=== PATIENT | female | born 1980 | race Hispanic/Latino ===

== ENCOUNTER 2017-07-15 16:54 | Inpatient (IN) | payer BC ==
[2017-07-15 17:37] LABS: BASO % 0.4 % (0.0-2.0); EOS # 0.1 K/uL (0.0-0.7); EOS % 1.2 % (0.0-4.0); HEMATOCRIT 40.3 % (34.0-47.0); LYMPH # 2.1 K/uL (1.0-4.3); LYMPH % 30.1 % (20.0-40.0); MEAN CELL VOLUME 90.1 fl (81.0-99.0); MEAN CORPUSCULAR HEMOGLOBIN 30.6 pg (27.0-31.0); MEAN CORPUSCULAR HGB CONC 33.9 g/dL (33.0-37.0); MEAN PLATELET VOLUME 10.4 fl (7.2-11.7); MONO # 0.4 K/uL (0.0-0.8); MONO % 5.9 % (0.0-10.0); NEUT # 4.4 K/uL (1.8-7.0); NEUT % 62.4 % (50.0-75.0); NRBC % 0.1 % (0.0-0.0); RED CELL DISTRIBUTION WIDTH 12.7 % (11.5-14.5); WHITE BLOOD COUNT 7.1 K/uL (4.8-10.8)
[2017-07-15 17:55] LABS: ALB/GLOB RATIO 1.6 (1.0-2.1); ALKALINE PHOSPHATASE 61 U/L (38-126); ALT/SGPT 30 U/L (9-52); AST/SGOT 24 U/L (14-36); BILIRUBIN,TOTAL 1.5 mg/dl (0.2-1.3); BLOOD UREA NITROGEN 14 mg/dl (7-17); CALCIUM 9.4 mg/dL (8.4-10.2); CARBON DIOXIDE 26 mmol/L (22-30); CHLORIDE 104 mmol/L (98-107); CHOLESTEROL 151 mg/dL (0-199); GFR AFRICAN-AMERICAN > 60; GLUCOSE,RANDOM 105 mg/dL (65-105); POTASSIUM 3.8 MMOL/L (3.6-5.0); SODIUM 141 mmol/l (132-148); TOTAL PROTEIN 7.8 G/DL (6.3-8.2)
--- NOTE | 2017-07-15 17:58 | CT ---
PROCEDURE: CT HEAD WITHOUT CONTRAST. HISTORY: dysarthria since last night, hx migraines COMPARISON: None available. TECHNIQUE: Axial computed tomography images were obtained through the head/brain without intravenous contrast. Radiation dose: Total exam DLP = 748.19 mGy-cm. This CT exam was performed using one or more of the following dose reduction techniques: Automated exposure control, adjustment of the mA and/or kV according to patient size, and/or use of iterative reconstruction technique. FINDINGS: HEMORRHAGE: No intracranial hemorrhage. BRAIN: No mass effect or edema. No atrophy or chronic microvascular ischemic changes.Please note that MRI with diffusion imaging is more sensitive in the detection of acute ischemic event. VENTRICLES: Unremarkable. No hydrocephalus. CALVARIUM: Unremarkable. PARANASAL SINUSES: Unremarkable as visualized. No significant inflammatory changes. MASTOID AIR CELLS: Under aerated and sclerotic left mastoid air cells which contain fluid. The right mastoid air cells appear clear. OTHER FINDINGS: None. IMPRESSION: No acute intracranial pathology identified. Under aerated and sclerotic left mastoid air cells which contain fluid. Correlate clinically for history of mastoiditis.
--- NOTE | 2017-07-15 18:18 | RAD ---
HISTORY: dysarthria COMPARISON: Chest x-ray performed 04/03/16 TECHNIQUE: Chest, one view. FINDINGS: LUNGS: No focal consolidation. Please note that chest x-ray has limited sensitivity for the detection of pulmonary masses. PLEURA: No significant pleural effusion identified. No definite pneumothorax . CARDIOVASCULAR: The cardiomediastinal silhouette appears within normal limits of size. OSSEOUS STRUCTURES: No acute osseous abnormality identified. VISUALIZED UPPER ABDOMEN: Unremarkable. OTHER FINDINGS: None. IMPRESSION: No focal consolidation, significant pleural effusion, or definite pneumothorax identified.
--- NOTE | 2017-07-15 19:19 | ED PDOC ---
HPI:STROKE - Time Time: 17:01 - Historian Historian: Patient, Family - Chief Complaint Chief Complaint: other (difficulty speaking) - Onset Date: 07/14/17 Onset: Hours (>24hrs ago) - Timing Timing: Currently Symptomatic, Intermittent - Location Location: Speech - Severity of pain Maximum severity:: Mild Severity Current: Mild - Quality of Pain Quality of Pain:: Pressure - Associated Symptoms Associated symptoms:: Headache - Exacerbated by Exacerbated by:: Nothing - Relieved by Relieved by:: Nothing - TPA Positive for Contraindication: Yes Reason tPA is not being Administered: NIHSS <4 and symptoms ongoing >24 hrs - Notes: Notes:: 36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 States has no word finding difficulties, rather feels as "tongue is heavy". Awoke this morning, took a benadryl thinking it would help, which she believes it did as symptoms improved briefly, then returned. She went to PMD Dr Conn who recommended she come to ED. In ED c/o only the speech difficulty and mild headache which is different than normal migrane pattern. Denies weakness, numbness, change in vision or coordination. Does not take ASA daily. <Donavon Howard III - Last Filed: 07/16/17 10:00> NIHSS Stroke Scale - Date/Time Evaluation Performed Date Performed: 07/15/17 Time Performed: 17:05 When Was NIHSS Performed: Baseline - How Severe is the Stroke Level of Consciousness: 0=Alert LOC to Questions: 0=Both comments correct LOC to commands: 0=Obeys both correctly Best Gaze: 0=Normal Visual: 0=No visual loss Facial: 0=Normal Motor Arm - Left: 0=No drift Motor Arm - Right: 0=No drift Motor Leg - Left: 0=No drift Motor Leg - Right: 0=No drift Limb Ataxia: 0=Absent Sensory: 0=Normal Best Language: 0=No aphasia Dysarthia: 1=Mild to moderate slurring Extinction & Inattention (Neglect): 0=Normal, no object Score: 1 <Donavon Howard III - Last Filed: 07/16/17 10:00> rTPA Inclusion/Exclusion - Refusal of Treatment Patient Refused Treatment: No - Inclusion Criteria for Altepase Patient is 18 years or Older: Yes The Clinical Diagnosis of Ischemic Stroke That is Causing a Potentially Disabling Neurological Deficit: Yes Time of Onset is Well Established to be Less Than 270 Minute Before Treatment Would Begin: No Risk/Benefit Discussed With Patient/Family Member Present: Yes - Exclusion Criteria for Altepase Uncontrolled Hypertension at Time of Treatment (Systolic BP above 185 or Diastolic BP above 110 mmHg): No - Warning to TPA With Conditions Following Conditions Weighed Against Anticipated Benefit: Yes Condition: Stroke Serevity Too Mild <Donavon Howard III - Last Filed: 07/16/17 10:00> Past Medical History Vital Signs: Last Vital Signs Temp 98.6 F 07/15/17 21:45 Pulse 70 07/15/17 22:16 Resp 20 07/15/17 22:16 BP 105/68 07/15/17 21:45 Pulse Ox 98 07/15/17 21:45 <Serg Mckeon - Last Filed: 07/16/17 00:10> Reviewed: Historical Data, Nursing Documentation, Vital Signs Vital Signs: Last Vital Signs Temp 98.0 F 07/15/17 17:00 Pulse 75 07/15/17 17:00 Resp 10 L 07/15/17 17:00 BP 113/76 07/15/17 17:00 Pulse Ox 100 07/15/17 17:00 - Medical History PMH: Migraine (on daily propranolol for prophylaxis) Other PMH: darien danlos; ?macroglobbulin deficiency, prior rheum and alleric workup; - Family History Family History: States: Unknown Family Hx - Living Arrangements Living Arrangements: With Family - Social History Current smoker - smoking cessation education provided: No <Donavon Howard III - Last Filed: 07/16/17 10:00> - Home Medications Home Medications: Ambulatory Orders Medication Instructions Recorded Albuterol HFA [Ventolin HFA 90 2 puff IH Q4H PRN 07/15/17 mcg/actuation (8 g)] Propranolol [Inderal] 10 mg PO HS 07/15/17 - Allergies Allergies/Adverse Reactions: Allergies Allergy/AdvReac Type Severity Reaction Status Date / Time azithromycin [From Zithromax] Allergy ANAPHYLAXIS Verified 04/03/16 03:16 codeine AdvReac RASH Verified 04/03/16 03:16 diazepam [From Valium] AdvReac RASH Verified 07/15/17 16:56 Review of Systems ROS Statement: Except As Marked, All Systems Reviewed And Found Negative ENT: Negative for: Ear Pain, Nose Pain, Throat Pain Cardiovascular: Negative for: Palpitations, Orthopnea Respiratory: Negative for: Cough, Shortness of Breath Gastrointestinal: Negative for: Nausea, Abdominal Pain Genitourinary Female: Negative for: Dysuria, Frequency Musculoskeletal: Negative for: Neck Pain, Arm Pain, Back Pain, Leg Pain Skin: Negative for: Rash, Lesions, Jaundice Neurological: Positive for: Headache, Other (speech changes). Negative for: Weakness, Numbness, Dizziness Psych: Negative for: Anxiety <Donavon Howard III - Last Filed: 07/16/17 10:00> Physical Exam - Reviewed Nursing Documentation Reviewed: Yes Vital Signs Reviewed: Yes - Physical Exam Appears: Positive for: Non-toxic (speech +dysarthria but language intact), No Acute Distress Head Exam: Positive for: ATRAUMATIC, NORMAL INSPECTION, NORMOCEPHALIC Skin: Positive for: Normal Color, Warm, DRY Eye Exam: Positive for: EOMI, Normal appearance, PERRL ENT: Positive for: Normal ENT Inspection, TM Is/Are (no erythema b/'), Other ( no mastoid tenderness or erythema). Negative for: Pharyngeal Erythema Neck: Positive for: Normal, Painless ROM Cardiovascular/Chest: Positive for: Regular Rate, Rhythm Respiratory: Positive for: CNT, Normal Breath Sounds Gastrointestinal/Abdominal: Positive for: Bowel Sounds, Soft. Negative for: Tenderness Back: Positive for: Normal Inspection Extremity: Positive for: Normal ROM Neurologic/Psych: Positive for: Alert, Oriented, Other (+dysarthria). Negative for: Aphasia, Facial Droop <Donavon Howard III - Last Filed: 07/16/17 10:00> - Laboratory Results Result Diagrams: 07/15/17 17:21 07/15/17 17:21 <Serg Mckeon - Last Filed: 07/16/17 00:10> - Laboratory Results Result Diagrams: 07/15/17 17:21 07/15/17 17:21 - ECG O2 Sat by Pulse Oximetry: 100 <Donavon Howard III - Last Filed: 07/16/17 10:00> Medical Decision Making Medical Decision Making: symptoms ongoing >24 hrs, not candidate for code stroke protocol. CT brain, labs, EKG ordered CT brain reviewed, ?fluid in mastoid- pt states thats been present on MRI in past and denies current pain in area. labs unremarkable ASA ordered. D/w PMD Dr Conn, requests admission to service and service neurology D/w Dr Mckeon neurology. Not candidate for TPA. May be vasculitis given hx darien danlos? D/w Dr Shultz for hospital admission (hospitalist electronic transaction implementer but unavailable for admission) On re-eval speech somewhat improved, mild headache remains. Patient and family member updated on findings. Told to alert RN immediately if symptoms return or worsen, or new symptoms develop. <Donavon Howard III - Last Filed: 07/16/17 10:00> Disposition <Serg Mckeon - Last Filed: 07/16/17 00:10> - Patient ED Disposition Is Patient to be Admitted: Yes Counseled Patient/Family Regarding: Studies Performed, Diagnosis, Need For Followup - Disposition Disposition: Routine/Home Disposition Time: 19:01 - Pt Status Changed To: Hospital Disposition Of: Observation - POA Present On Arrival: None <Donavon Howard III - Last Filed: 07/16/17 10:00> - Clinical Impression Clinical Impression: Dysarthria - Disposition Condition: STABLE
[2017-07-15] MEDS ORDERED: Albuterol HFA 90 mcg/actuation (8 g) IH PRN (22:38)
--- NOTE | 2017-07-15 23:22 | CP.PCM.CON ---
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 She had a migraine exacerbation in her bi frontal area. She has a history of migraine since many years and a history of Anxiety Depression, for which she was seen by a psychiatrist long time ago. No H/o Head trauma, no h/o seizures, no family history of seizures, she has a h/o Ehler Danlos Syndrome and was seen by a chucking machine set up operator who performed on her an ECHO, and is followed by her Press Operator Assistant. She has periodic and annual check ups. No H/O HTN or high Cholesterol She is not receiving Hormonal control but is not observing migraine Headache Precautions. She is always hydrated and drinking water and fluids. - Timing Timing: Currently Symptomatic, Intermittent - Location Location: Speech - Severity of pain Maximum severity:: Mild Severity Current: Mild - Quality of Pain Quality of Pain:: Pressure - Associated Symptoms Associated symptoms:: Headache - Exacerbated by Exacerbated by:: Nothing - Relieved by Relieved by:: Nothing - TPA Positive for Contraindication: Yes Reason tPA is not being Administered: NIHSS <4 and symptoms ongoing >24 hrs Past Medical History Vital Signs: Last Vital Signs Temp 98.0 F 07/15/17 17:00 Pulse 75 07/15/17 17:00 Resp 10 L 07/15/17 17:00 BP 113/76 07/15/17 17:00 Pulse Ox 100 07/15/17 17:00 - Family History Family History: States: Unknown Family Hx No Seizures, no Rheumatological diseases. CT Brain without contrast: No acute intracranial pathology identified. Under aerated and sclerotic left mastoid air cells which contain fluid. Correlate clinically for history of mastoiditis. Past Patient History - Past Medical History & Family History Past Medical History?: Yes - Past Social History Smoking Status: Never Smoked - CARDIAC Hx Cardiac Disorders: No - PULMONARY Hx Respiratory Disorders: No - NEUROLOGICAL Hx Neurological Disorder: Yes Hx Migraine: Yes - HEENT Hx HEENT Problems: No - RENAL Hx Chronic Kidney Disease: No - ENDOCRINE/METABOLIC Hx Endocrine Disorders: No - HEMATOLOGICAL/ONCOLOGICAL Hx Blood Disorders: No Hx AIDS: No Hx Human Immunodeficiency Virus (HIV): No - INTEGUMENTARY Hx Dermatological Problems: No - MUSCULOSKELETAL/RHEUMATOLOGICAL Hx Musculoskeletal Disorders: No Hx Falls: No - GASTROINTESTINAL Hx Gastrointestinal Disorders: No - GENITOURINARY/GYNECOLOGICAL Hx Genitourinary Disorders: No - PSYCHIATRIC Hx Psychophysiologic Disorder: No Hx Substance Use: No - SURGICAL HISTORY Hx Surgeries: No - ANESTHESIA Hx Anesthesia: No Hx Anesthesia Reactions: No Meds Allergies/Adverse Reactions: Allergies Allergy/AdvReac Type Severity Reaction Status Date / Time azithromycin [From Zithromax] Allergy ANAPHYLAXIS Verified 04/03/16 03:16 codeine AdvReac RASH Verified 04/03/16 03:16 diazepam [From Valium] AdvReac RASH Verified 07/15/17 16:56 Physical Exam - Neurological Exam Additional comments: Slim and Petite Mental status: Awake, Alert, Oriented, mildly dysarthric speech, able to maintain a conversation in full. Normal memory Cranial Nerves II to XII: No Deficits Motor: Normal tone, Power, muscle bulk DTR 1 to 2 /4 Plantar stimulation is causing down going toes. Sensory: no deficits Cerebellar: Normal Exam Results - Vital Signs Recent Vital Signs: Last Vital Signs Temp 98.0 F 07/15/17 20:38 Pulse 70 07/15/17 22:16 Resp 20 07/15/17 22:16 BP 149/79 07/15/17 20:38 Pulse Ox 100 07/15/17 20:38 - Labs Result Diagrams: 07/15/17 17:21 07/15/17 17:21 Labs: Laboratory Results - last 24 hr 07/15/17 07/15/17 07/15/17 17:21 17:21 17:21 WBC 7.1 RBC 4.47 Hgb 13.7 Hct 40.3 MCV 90.1 MCH 30.6 MCHC 33.9 RDW 12.7 Plt Count 185 MPV 10.4 Neut % (Auto) 62.4 Lymph % (Auto) 30.1 [place] % (Auto) 5.9 Eos % (Auto) 1.2 Baso % (Auto) 0.4 Neut # 4.4 Lymph # 2.1 [place] # 0.4 Eos # 0.1 Baso # 0.0 ESR PT 11.2 INR 1.0 APTT 33.0 Sodium 141 Potassium 3.8 Chloride 104 Carbon Dioxide 26 Anion Gap 15 BUN 14 Creatinine 0.7 Est GFR ( Amer) > 60 Est GFR (Non-Af Amer) > 60 Random Glucose 105 Calcium 9.4 Total Bilirubin 1.5 H AST 24 ALT 30 Alkaline Phosphatase 61 Troponin I < 0.0120 Total Protein 7.8 Albumin 4.8 Globulin 2.9 Albumin/Globulin Ratio 1.6 Triglycerides 71 Cholesterol 151 LDL Cholesterol Direct 49 HDL Cholesterol 72 H Blood Type Antibody Screen BBK History Checked 07/15/17 07/15/17 17:21 19:55 WBC RBC Hgb Hct MCV MCH MCHC RDW Plt Count MPV Neut % (Auto) Lymph % (Auto) [place] % (Auto) Eos % (Auto) Baso % (Auto) Neut # Lymph # [place] # Eos # Baso # ESR 10 PT INR APTT Sodium Potassium Chloride Carbon Dioxide Anion Gap BUN Creatinine Est GFR ( Amer) Est GFR (Non-Af Amer) Random Glucose Calcium Total Bilirubin AST ALT Alkaline Phosphatase Troponin I Total Protein Albumin Globulin Albumin/Globulin Ratio Triglycerides Cholesterol LDL Cholesterol Direct HDL Cholesterol Blood Type O POSITIVE Antibody Screen Negative BBK History Checked No verified bt Assessment & Plan (1) Que-Danlos disease Assessment and Plan: Needs to stay hydrated and avoid violent movement Get Cardiology Consult Status: Acute (2) Dizziness Assessment and Plan: It might be due to migraine, R/O Seizures Status: Acute (3) Epistaxis Status: Acute (4) Migraine headache Assessment and Plan: Headache precautions were explained to her Status: Acute (5) Mastoiditis Assessment and Plan: On the left side. Needs to be treated with Antibiotics as it might be a factor in her headache. Status: Acute
[2017-07-16 07:11] LABS: THYROID STIMULATING HORMONE 2.96 mIU/ML (0.46-4.68)
--- NOTE | 2017-07-16 07:57 | CP.PCM.HP ---
<Carlos De León - Last Filed: 07/16/17 17:32> History of Present Illness - History of Present Illness History of Present Illness: Patient seen and examined with attending. 36 y/o female with hx of migraine headaches, que shana (dx by her border machine operator), presented to ED c/o of speech difficulty with speech, felt like she was slurring her words. She states she was at work when it started. She went to PMD and subsequently sent to ED. Patient denied headache. No weakness, numbness, tingling of extremities. No history of similar episode. Diagnosis of fred saldana made clinically, has not had genetic testing yet. Medications reviewed. Allergies reviewed. Present on Admission - Present on Admission Any Indicators Present on Admission: No Review of Systems - Constitutional Constitutional: absent: Fatigue, Fever - EENT Eyes: absent: Blurred Vision, Change in Vision, Loss of Peripheral Vision Nose/Mouth/Throat: absent: Nasal Congestion, Nasal Discharge - Cardiovascular Cardiovascular: absent: Chest Pain, Palpitations - Respiratory Respiratory: absent: Cough, Dyspnea - Gastrointestinal Gastrointestinal: absent: Abdominal Pain, Nausea - Musculoskeletal Musculoskeletal: absent: Arthralgias - Neurological Neurological: Headaches. absent: Abnormal Hearing, Disequilibrium, Numbness, Memory Loss, Tingling Past Patient History - Infectious Disease Hx of Infectious Diseases: None - Past Medical History & Family History Past Medical History?: Yes - Past Social History Smoking Status: Never Smoked - CARDIAC Hx Cardiac Disorders: No - PULMONARY Hx Respiratory Disorders: No - NEUROLOGICAL Hx Neurological Disorder: Yes Hx Migraine: Yes - HEENT Hx HEENT Problems: No - RENAL Hx Chronic Kidney Disease: No - ENDOCRINE/METABOLIC Hx Endocrine Disorders: No - HEMATOLOGICAL/ONCOLOGICAL Hx Blood Disorders: No Hx AIDS: No Hx Human Immunodeficiency Virus (HIV): No - INTEGUMENTARY Hx Dermatological Problems: No - MUSCULOSKELETAL/RHEUMATOLOGICAL Hx Musculoskeletal Disorders: No Hx Falls: No - GASTROINTESTINAL Hx Gastrointestinal Disorders: No - GENITOURINARY/GYNECOLOGICAL Hx Genitourinary Disorders: No - PSYCHIATRIC Hx Psychophysiologic Disorder: No Hx Substance Use: No - SURGICAL HISTORY Hx Surgeries: No - ANESTHESIA Hx Anesthesia: No Hx Anesthesia Reactions: No Meds Allergies/Adverse Reactions: Allergies Allergy/AdvReac Type Severity Reaction Status Date / Time azithromycin [From Zithromax] Allergy ANAPHYLAXIS Verified 04/03/16 03:16 codeine AdvReac RASH Verified 04/03/16 03:16 diazepam [From Valium] AdvReac RASH Verified 07/15/17 16:56 Physical Exam - Constitutional Appears: No Acute Distress - Head Exam Head Exam: ATRAUMATIC, NORMAL INSPECTION, NORMOCEPHALIC - Eye Exam Eye Exam: Normal appearance, PERRL - ENT Exam ENT Exam: Mucous Membranes Moist - Respiratory Exam Respiratory Exam: NORMAL BREATHING PATTERN - Cardiovascular Exam Cardiovascular Exam: REGULAR RHYTHM - GI/Abdominal Exam GI & Abdominal Exam: Normal Bowel Sounds, Soft. absent: Tenderness - Extremities Exam Extremities exam: Positive for: full ROM. Negative for: pedal edema - Neurological Exam Neurological exam: Alert, CN II-XII Intact, Normal Gait, Oriented x3 Additional comments: fluent speech - Psychiatric Exam Psychiatric exam: Normal Affect, Normal Mood - Skin Skin Exam: Dry, Intact, Normal Color, Warm Results - Vital Signs Recent Vital Signs: Last Vital Signs Temp 97.9 F 07/16/17 05:00 Pulse 69 07/16/17 05:00 Resp 16 07/16/17 05:00 BP 106/65 07/16/17 05:00 Pulse Ox 98 07/16/17 05:00 - Labs Result Diagrams: 07/15/17 17:21 07/15/17 17:21 Labs: Laboratory Results - last 24 hr 07/15/17 07/15/17 07/15/17 17:15 17:21 17:21 WBC 7.1 RBC 4.47 Hgb 13.7 Hct 40.3 MCV 90.1 MCH 30.6 MCHC 33.9 RDW 12.7 Plt Count 185 MPV 10.4 Neut % (Auto) 62.4 Lymph % (Auto) 30.1 [place] % (Auto) 5.9 Eos % (Auto) 1.2 Baso % (Auto) 0.4 Neut # 4.4 Lymph # 2.1 [place] # 0.4 Eos # 0.1 Baso # 0.0 ESR PT INR APTT Sodium 141 Potassium 3.8 Chloride 104 Carbon Dioxide 26 Anion Gap 15 BUN 14 Creatinine 0.7 Est GFR ( Amer) > 60 Est GFR (Non-Af Amer) > 60 POC Glucose (mg/dL) 108 Random Glucose 105 Uric Acid Calcium 9.4 Total Bilirubin 1.5 H AST 24 ALT 30 Alkaline Phosphatase 61 Troponin I < 0.0120 Total Protein 7.8 Albumin 4.8 Globulin 2.9 Albumin/Globulin Ratio 1.6 Triglycerides 71 Cholesterol 151 LDL Cholesterol Direct 49 HDL Cholesterol 72 H TSH 3rd Generation Blood Type Antibody Screen BBK History Checked 07/15/17 07/15/17 07/15/17 17:21 17:21 19:55 WBC RBC Hgb Hct MCV MCH MCHC RDW Plt Count MPV Neut % (Auto) Lymph % (Auto) [place] % (Auto) Eos % (Auto) Baso % (Auto) Neut # Lymph # [place] # Eos # Baso # ESR 10 PT 11.2 INR 1.0 APTT 33.0 Sodium Potassium Chloride Carbon Dioxide Anion Gap BUN Creatinine Est GFR ( Amer) Est GFR (Non-Af Amer) POC Glucose (mg/dL) Random Glucose Uric Acid Calcium Total Bilirubin AST ALT Alkaline Phosphatase Troponin I Total Protein Albumin Globulin Albumin/Globulin Ratio Triglycerides Cholesterol LDL Cholesterol Direct HDL Cholesterol TSH 3rd Generation Blood Type O POSITIVE Antibody Screen Negative BBK History Checked No verified bt 07/16/17 07/16/17 04:20 04:20 WBC RBC Hgb Hct MCV MCH MCHC RDW Plt Count MPV Neut % (Auto) Lymph % (Auto) [place] % (Auto) Eos % (Auto) Baso % (Auto) Neut # Lymph # [place] # Eos # Baso # ESR 8 PT INR APTT Sodium Potassium Chloride Carbon Dioxide Anion Gap BUN Creatinine Est GFR ( Amer) Est GFR (Non-Af Amer) POC Glucose (mg/dL) Random Glucose Uric Acid 4.0 Calcium Total Bilirubin AST ALT Alkaline Phosphatase Troponin I Total Protein Albumin Globulin Albumin/Globulin Ratio Triglycerides 42 D Cholesterol 132 LDL Cholesterol Direct 49 HDL Cholesterol 60 TSH 3rd Generation 2.96 Blood Type Antibody Screen BBK History Checked Assessment & Plan (1) Dysarthria Status: Acute (3) Que-Danlos disease Status: Acute (5) DVT prophylaxis Status: Acute - Assessment and Plan (Free Text) Assessment: 36 year old female admitted w/ dysarthria. Speech is fluent today. Answering questions appropriately. Symptoms improved. Neurology consult appreciated. Cardiology consult for hx of que danlos, echo ordered and done. Pending report. Patients Head MRA/ Brain MRI unremarkable for hemorrhage/infarct. All labs/imaging reviewed. case d/w attending <Caesar Shultz - Last Filed: 07/22/17 10:32> Results - Vital Signs Recent Vital Signs: Last Vital Signs Temp 97.8 F 07/22/17 08:12 Pulse 78 07/22/17 08:12 Resp 18 07/22/17 08:12 BP 105/70 07/22/17 08:12 Pulse Ox 98 07/22/17 08:12 - Labs Result Diagrams: 07/20/17 04:25 07/20/17 04:25 Labs: Laboratory Results - last 24 hr 07/16/17 07/19/17 07/21/17 04:20 17:00 13:58 Rheumatoid Factor IgG 9 H Rheumatoid Factor IgA <5 Rheumatoid Factor IgM <5 Lyme Disease Screen <0.90 Lyme Disease IgG Ab (IFA) Negative Lyme Disease IgM Ab Negative Assessment & Plan - Assessment and Plan (Free Text) Assessment: Patient was personally seen and examined by me in rounds with residents. Available labs and diagnostic data reviewed. Case, Patient's condition and management plan discussed with residents in rounds. Agree with resident's progress note. Plan: As ordered.
[2017-07-16] MEDS: Enoxaparin 40 mg Syringe SC SCH (08:54)
--- NOTE | 2017-07-16 11:49 | MRI ---
PROCEDURE: MRI BRAIN WITHOUT CONTRAST HISTORY: Dysarthria of sudden onset, R/O CVA COMPARISON: Comparison made with prior CT scan of the brain dated 07/15/2017 TECHNIQUE: Multiplanar, multisequence MR images of the brain were obtained without intravenous contrast enhancement. FINDINGS: HEMORRHAGE: No acute parenchymal, subarachnoid or extra-axial hemorrhage. No evidence of hemosiderin deposition identified on gradient echo weighted sequence DWI: No evidence of an acute or early subacute infarction seen on diffusion imaging. BRAIN PARENCHYMA: No obvious parenchymal masses or collections seen on this noncontrast exam. No mass effect or edema. No atrophy or chronic microvascular ischemic changes. Ventricular and sulcal size are within range of normal for this patient's stated age. VENTRICLES: No obstructive hydrocephalus. CRANIUM: No obvious calvarial abnormalities ORBITS: The orbits and contents appear grossly unremarkable. PARANASAL SINUSES/MASTOIDS: Re- demonstrated underpneumatized and sclerotic changes of the left mastoid air complex with on partial opacification of residual mastoid air cells. . . The right mastoid air complex unremarkable. Visualized paranasal sinuses are clear. VASCULAR SYSTEM: Visualized major vascular flow voids at skull base are patent. OTHER FINDINGS: None. IMPRESSION: No evidence of acute intracranial hemorrhage or infarct. Underpneumatized sclerotic left mastoid air complex with partial opacification of residual left-sided mastoid air cells.
--- NOTE | 2017-07-16 13:16 | MRI ---
PROCEDURE: Magnetic Resonance Angiography Brain HISTORY: Ehler Danlos, Slurred speech COMPARISON: None available. TECHNIQUE: 3D time of flight MR angiography of the intracranial arteries was performed. Rotating maximum intensity projection images were generated. FINDINGS: INTERNAL CAROTID ARTERIES: Unremarkable. The skull base, petrous, cavernous and supraclinoid segments are bilaterally widely patient. ANTERIOR CEREBRAL ARTERIES: Unremarkable. A1 and A2 segments are widely patent. Smaller distal branches unremarkable, as visualized. MIDDLE CEREBRAL ARTERIES: Unremarkable. M1 and M2 segments are widely patent. Perisylvian branches grossly symmetric. POSTERIOR CIRCULATION: Basilar Artery: Unremarkable. Distal Vertebral Arteries: Unremarkable. Posterior Cerebral Arteries: Unremarkable. Posterior Inferior Cerebellar Arteries: Unremarkable. ANEURYSM/ VASCULAR MALFORMATIONS: None. OTHER FINDINGS: None. IMPRESSION: Unremarkable MR angiography of the brain. . No evidence of large aneurysm or vascular malformation. No evidence of dissection
--- NOTE | 2017-07-16 18:19 | CP.PCM.CON ---
History of Present Illness - History of Present Illness History of Present Illness: I was asked to see patient by Dr Shultz. Patient is a 36 year old female with history of Ehler Danlos syndrome, followed by a dry yard worker who presents with slurred speech. Symptoms began 2 days ago , when she could not feel her tongue. She was not abl3 to speak properly. She denied vision, or mobility impairment. She takes propanolol for migraines. Review of Systems - Constitutional Constitutional: absent: As Per HPI, Anorexia, Chills, Daytime Sleepiness, Excessive Sweating, Fatigue, Fever, Frequent Falls, Headache, Increased Appetite , Lethargy, Malaise, Night Sweats, Snoring, Sleep Apnea, Weight Gain, Weight Loss, Weakness, Other - EENT Eyes: absent: As Per HPI, Blind Spots, Blurred Vision, Change in Vision, Decreased Night Vision, Diplopia, Discharge, Dry Eye, Exophthalmos, Floaters, Irritation, Itchy Eyes, Loss of Peripheral Vision, Pain, Photophobia, Requires Corrective Lenses, Sees Flashes, Spots in Vision, Tunnel Vision, Other Visual Disturbances, Loss of Vision, Other Ears: absent: As Per HPI, Decreased Hearing, Ear Discharge, Ear Pain, Tinnitus, Abnormal Hearing, Disequilibrium, Dizziness, Other Nose/Mouth/Throat: absent: As Per HPI, Epistaxis, Nasal Congestion, Nasal Discharge, Nasal Obstruction, Nasal Trauma, Nose Pain, Post Nasal Drip, Sinus Pain, Sinus Pressure, Bleeding Gums, Change in Voice, Dental Pain, Dry Mouth, Dysphagia, Halitosis, Hoarsness, Lip Swelling, Mouth Lesions, Mouth Pain, Odynophagia, Sore Throat, Throat Swelling, Tongue Swelling, Facial Pain, Neck Pain, Neck Mass, Other - Cardiovascular Cardiovascular: absent: As Per HPI, Acrocyanosis, Chest Pain, Chest Pain at Rest , Chest Pain with Activity, Claudication, Diaphoresis, Dyspnea, Dyspnea on Exertion, Edema, Irregular Heart Rhythm, Pain Radiating to Arm/Neck/Jaw, Leg Edema, Leg Ulcers, Lightheadedness, Orthopnea, Palpitations, Paroxysmal Nocturnal Dyspnea, Pedal Edema, Radiating Pain, Rapid Heart Rate, Slow Heart Rate, Syncope, Other - Respiratory Respiratory: absent: As Per HPI, Cough, Dyspnea, Hemoptysis, Dyspnea on Exertion , Wheezing, Snoring, Stridor, Pain on Inspiration, Chest Congestion, Excessive Mucous Production, Change in Mucous Color, Pain with Coughing, Other - Gastrointestinal Gastrointestinal: absent: As Per HPI, Abdominal Pain, Belching, Bloating, Change in Bowel Habits, Change in Stool Character, Coffee Ground Emesis, Constipation, Cramping, Diarrhea, Dyspepsia, Dysphagia, Early Satiety, Excessive Flatus, Fecal Incontinence, Heartburn, Hematemesis, Hematochezia, Loose Stools, Melena, Nausea, Odynophagia, Temesmus, Vomiting, Other - Genitourinary Genitourinary: absent: As Per HPI, Change in Urinary Stream, Difficulty Urinating, Dysuria, Flank Pain, Hematuria, Pyuria, Nocturia, Urinary Incontinence, Urinary Frequency, Urinary Hesitance, Urinary Urgency, Voiding Freq/Small Amts, Freq UTI, Hx Renal/Bladder Calculi, Hx /Renal Surgery, Bladder Distension, Other - Musculoskeletal Musculoskeletal: absent: As Per HPI, Abnormal Gait, Arthralgias, Atrophy, Back Pain, Deformity, Joint Swelling, Limited Range of Motion, Loss of Height, Muscle Cramps, Muscle Weakness, Myalgias, Neck Pain, Numbness, Radiating Pain into Limb, Stiffness, Tingling, Other - Integumentary Integumentary: absent: As Per HPI, Acne, Alopecia, Bleeding Lesions, Change in Hair, Change in Nails, Change in Pigmentation, Changing Lesions, Dry Skin, Erythema, Furuncle, Hirsutism, Lesions, New Lesions, Non-Healing Lesions, Photosensitivity, Pruritus, Rash, Skin Pain, Skin Ulcer, Sores, Striae, Swelling , Unusual Bruising, Wounds, Jaundice, Other - Neurological Neurological: Abnormal Speech, Tingling - Psychiatric Psychiatric: absent: As Per HPI, Abnormal Sleep Pattern, Anhedonia, Anxiety, Auditory Hallucinations, Behavioral Changes, Change in Appetite, Change in Libido, Confusion, Depression, Difficulty Concentrating, Hallucinations, Homicidal Ideation, Hopelessness, Irritability, Memory Loss, Mood Swings, Panic Attacks, Paranoia, Suicidal Ideation, Visual Hallucinations, Tactile Hallucinations, Other - Endocrine Endocrine: absent: As Per HPI, Change in Body Appearance, Change in Libido, Cold Intolorance, Deepening of Voice, Excessive Sweating, Fatigue, Flushing, Heat Intolorance, Increase in Ring/Shoe/Hat Size, Palpitations, Polydipsia, Polyphagia, Polyuria, Other - Hematologic/Lymphatic Hematologic: absent: As Per HPI, Easy Bleeding, Easy Bruising, Lymphadenopathy, Other Past Patient History - Infectious Disease Hx of Infectious Diseases: None - Past Medical History & Family History Past Medical History?: Yes - Past Social History Smoking Status: Never Smoked - CARDIAC Hx Cardiac Disorders: No - PULMONARY Hx Respiratory Disorders: No - NEUROLOGICAL Hx Neurological Disorder: Yes Hx Migraine: Yes - HEENT Hx HEENT Problems: No - RENAL Hx Chronic Kidney Disease: No - ENDOCRINE/METABOLIC Hx Endocrine Disorders: No - HEMATOLOGICAL/ONCOLOGICAL Hx Blood Disorders: No Hx AIDS: No Hx Human Immunodeficiency Virus (HIV): No - INTEGUMENTARY Hx Dermatological Problems: No - MUSCULOSKELETAL/RHEUMATOLOGICAL Hx Musculoskeletal Disorders: No Hx Falls: No - GASTROINTESTINAL Hx Gastrointestinal Disorders: No - GENITOURINARY/GYNECOLOGICAL Hx Genitourinary Disorders: No - PSYCHIATRIC Hx Psychophysiologic Disorder: No Hx Substance Use: No - SURGICAL HISTORY Hx Surgeries: No - ANESTHESIA Hx Anesthesia: No Hx Anesthesia Reactions: No Meds Allergies/Adverse Reactions: Allergies Allergy/AdvReac Type Severity Reaction Status Date / Time azithromycin [From Zithromax] Allergy ANAPHYLAXIS Verified 04/03/16 03:16 codeine AdvReac RASH Verified 04/03/16 03:16 diazepam [From Valium] AdvReac RASH Verified 07/15/17 16:56 - Medications Medications: Current Medications Acetaminophen (Tylenol 325mg Tab) 650 mg PO Q6 PRN PRN Reason: Headache Last Admin: 07/16/17 16:32 Dose: 650 mg Albuterol (Ventolin Hfa 90 Mcg/Actuation (8 G)) 2 puff IH Q4H PRN PRN Reason: Shortness of Breath Enoxaparin Sodium (Lovenox) 40 mg SC DAILY JAKOB PRN Reason: Protocol Last Admin: 07/16/17 08:54 Dose: 40 mg Ceftriaxone Sodium 1 gm/ (Sodium Chloride) 100 mls @ 100 mls/hr IVPB Q12H JAKOB PRN Reason: Protocol Last Admin: 07/16/17 12:46 Dose: 100 mls/hr Propranolol HCl (Inderal) 10 mg PO HS JAKOB Physical Exam - Constitutional Appears: Non-toxic - Head Exam Head Exam: NORMAL INSPECTION - Eye Exam Eye Exam: Normal appearance - ENT Exam ENT Exam: Mucous Membranes Moist - Neck Exam Neck exam: Positive for: Full Rom - Respiratory Exam Respiratory Exam: Decreased Breath Sounds - Cardiovascular Exam Cardiovascular Exam: REGULAR RHYTHM - GI/Abdominal Exam GI & Abdominal Exam: Normal Bowel Sounds - Rectal Exam Rectal Exam: Deferred - Extremities Exam Extremities exam: Negative for: pedal edema - Back Exam Back exam: NORMAL INSPECTION - Neurological Exam Neurological exam: Alert, Oriented x3 - Psychiatric Exam Psychiatric exam: Normal Affect - Skin Skin Exam: Normal Color Results - Vital Signs Recent Vital Signs: Last Vital Signs Temp 98.8 F 07/16/17 16:02 Pulse 88 07/16/17 16:02 Resp 20 07/16/17 16:02 BP 110/70 07/16/17 16:02 Pulse Ox 98 07/16/17 16:02 - Labs Result Diagrams: 07/15/17 17:21 07/15/17 17:21 Labs: Laboratory Results - last 24 hr 07/15/17 07/15/17 07/15/17 17:15 17:21 17:21 ESR POC Glucose (mg/dL) 108 Hemoglobin A1c 5.4 Uric Acid C-React Prot High Sens Triglycerides Cholesterol LDL Cholesterol Direct HDL Cholesterol Vitamin B12 25-OH Vitamin D Total TSH 3rd Generation Blood Type O POSITIVE Antibody Screen Negative BBK History Checked No verified bt 07/15/17 07/16/17 07/16/17 19:55 04:20 04:20 ESR 10 8 POC Glucose (mg/dL) Hemoglobin A1c Uric Acid 4.0 C-React Prot High Sens Triglycerides 42 D Cholesterol 132 LDL Cholesterol Direct 49 HDL Cholesterol 60 Vitamin B12 25-OH Vitamin D Total TSH 3rd Generation 2.96 Blood Type Antibody Screen BBK History Checked 07/16/17 07/16/17 07/16/17 04:20 04:20 08:40 ESR POC Glucose (mg/dL) Hemoglobin A1c Uric Acid C-React Prot High Sens 1.28 Triglycerides Cholesterol LDL Cholesterol Direct HDL Cholesterol Vitamin B12 971 H 25-OH Vitamin D Total 36.4 TSH 3rd Generation Blood Type Antibody Screen BBK History Checked Assessment & Plan (1) Dysarthria Assessment and Plan: I reviewed the echocardiogram. Left ventricular dimensions are normal and there is no evidence of valvular dsyfunction. No obvious PFO identified. recommend management as per neurology Status: Acute
--- NOTE | 2017-07-16 20:13 | CARD ---
APPROVED REPORT EXAM: Three-dimensional, Two-dimensional and M-mode echocardiogram with Doppler and color Doppler. Other Information Quality : ExcellentRhythm : NSR INDICATION CVA/TIA Echo Enhancing Agent Indication: Rule Out Septal Defect Agent/Amount Used: Agitated Saline 2D DIMENSIONS IVSd0.56 (0.7-1.1cm)LVDd4.47 (3.9-5.9cm) LVOT Diameter1.95 (1.8-2.4cm)PWd0.67 (0.7-1.1cm) IVSs0.88 (0.8-1.2cm)LVDs2.77 (2.5-4.0cm) FS (%) 38.0 %PWs1.02 (0.8-1.2cm) LVEF (%)55.0 (>50%) M-Mode DIMENSIONS Left Atrium (MM)2.84 (2.5-4.0cm)IVSd0.62 (0.7-1.1cm) Aortic Root2.58 (2.2-3.7cm)LVDd5.09 (4.0-5.6cm) Aortic Cusp Exc.1.79 (1.5-2.0cm)PWd0.74 (0.7-1.1cm) IVSs1.15 cmFS (%) 36 % LVDs3.25 (2.0-3.8cm)PWs1.05 cm Mitral Valve E/A ratio0.0 TDI E/Lateral E'0.0E/Medial E'0.0 Pulmonary Valve PV Peak Wyvqblmq35.7cm/s LEFT VENTRICLE The left ventricle is normal size. There is normal left ventricular wall thickness. The left ventricular function is normal. The left ventricular ejection fraction is within the normal range. There is normal LV segmental wall motion. The left ventricular diastolic function is normal. LV Spontaneous contrast is noted RIGHT VENTRICLE The right ventricle is normal size. There is normal right ventricular wall thickness. The right ventricular systolic function is normal. ATRIA The left atrium size is normal. The right atrium size is normal. The interatrial septum is intact with no evidence for an atrial septal defect. AORTIC VALVE The aortic valve is normal in structure. No aortic regurgitation is present. There is no aortic valvular stenosis. MITRAL VALVE The mitral valve is normal in structure. There is no evidence of mitral valve prolapse. There is no mitral valve stenosis. There is no mitral valve regurgitation noted. TRICUSPID VALVE The tricuspid valve is normal in structure. There is no tricuspid valve regurgitation noted. PULMONIC VALVE The pulmonary valve is normal in structure. There is no pulmonic valvular regurgitation. GREAT VESSELS The aortic root is normal in size. The IVC is normal in size and collapses >50% with inspiration. PERICARDIAL EFFUSION The pericardium appears normal. <Conclusion> The left ventricle is normal size. There is normal left ventricular wall thickness. The left ventricular function is normal. The left ventricular ejection fraction is within the normal range. There is normal LV segmental wall motion. The left ventricular diastolic function is normal. LV Spontaneous contrast is noted The interatrial septum is intact with no evidence for an atrial septal defect.
--- NOTE | 2017-07-16 22:28 | CP.PCM.PN ---
Subjective - Date & Time of Evaluation Date of Evaluation: 07/16/17 Time of Evaluation: 19:00 - Subjective Subjective: She has improved on IV Rocephin 1 gm Q 12hrs. Dysarthria is resolved. Migraine Headache is still affecting her. She has no weakness. Echo is negative and Cardiology consult is appreciated and is not showing any abnormalities. Objective - Vital Signs/Intake and Output Vital Signs (last 24 hours): Temp Pulse Resp BP Pulse Ox 97.8 F 64 18 103/65 99 07/16/17 20:39 07/16/17 22:05 07/16/17 20:39 07/16/17 22:05 07/16/17 20:39 - Medications Medications: Current Medications Acetaminophen (Tylenol 325mg Tab) 650 mg PO Q6 PRN PRN Reason: Headache Last Admin: 07/16/17 16:32 Dose: 650 mg Albuterol (Ventolin Hfa 90 Mcg/Actuation (8 G)) 2 puff IH Q4H PRN PRN Reason: Shortness of Breath Enoxaparin Sodium (Lovenox) 40 mg SC DAILY JAKOB PRN Reason: Protocol Last Admin: 07/16/17 08:54 Dose: 40 mg Ceftriaxone Sodium 1 gm/ (Sodium Chloride) 100 mls @ 100 mls/hr IVPB Q12H JAKOB PRN Reason: Protocol Last Admin: 07/16/17 12:46 Dose: 100 mls/hr Propranolol HCl (Inderal) 10 mg PO HS JAKOB Last Admin: 07/16/17 22:05 Dose: 10 mg - Labs Labs: 07/15/17 17:21 07/15/17 17:21 PT 11.2 Seconds (9.8-13.1) 07/15/17 17:21 INR 1.0 (0.9-1.2) 07/15/17 17:21 APTT 33.0 Seconds (25.6-37.1) 07/15/17 17:21 Assessment and Plan (1) Que-Danlos disease Status: Acute (2) Dizziness Status: Acute (3) Epistaxis Status: Acute (4) Migraine headache Status: Acute (5) Mastoiditis Status: Acute
--- NOTE | 2017-07-16 22:48 | CARD ---
APPROVED REPORT EKG Measurement Heart [id number] <Conclusion> Normal sinus rhythm Normal ECG
[2017-07-17] MEDS: Enoxaparin 40 mg Syringe SC SCH (08:51)
[2017-07-17] MEDS: cefTRIAXone IV 1 gm in Dextros 50 ML IVPB SCH ×2 (13:01→22:51)
[2017-07-17] MEDS ORDERED: methylPREDNISolone 125 MG in Sodium Chloride 0.9% 50 ML IVPB ONE (13:34)
--- NOTE | 2017-07-17 14:05 | PCM.RRT ---
<Jaimie Arnold - Last Filed: 07/17/17 14:06> ADJUNCT PROFESSOR Nurse Assessment - Respiratory Oxygen Delivery Method: Room Air Received Nebulizer Treatments: No Was the Patient Ventilated with Bag/Mask 100% O2?: No Secretions Suctioned?: No Was the Patient Intubated?: No Was the Patient Placed on a Ventilator?: No - Diagnostic Test Ordered EKG: No Chest X-Ray: No CT Scan: No CPR started during ADJUNCT PROFESSOR?: No I.Reason for ADJUNCT PROFESSOR - A) Acute Change in Patient: (Select all that apply): Staff member or family is worried about patient ( patient felt mild numbness over left cheek) Subjective: ADJUNCT PROFESSOR called or complaint of mild facial numbness over left cheek in 36 yr old F admitted for dysarthria with subsequent negative MRA/MRI for hemorrhage or infarct. CT head was unremarkable with finding of under aerated and sclerotic left mastoid air cells. Patient was found to be in no acute distress, vital signs stable, on physical exam cranial nerves II-XII were intact, speech is clear, facial sensation equal and normal bilaterally, strength 5/5 bilaterally in upper and lower extremities. Solumedrol 125mg IVP once ordered. Labs reviewed , are wnl, no signs of infection. If patient has mastoiditis, mild facial nerve palsy is possible. Patient is stable and no further intervention is necessary at this time. - Neurological Status (Select all that apply): Alert, Responsive, Oriented, Verbal, Follows Commands - Respiratory Oxygen Delivery Method: Room Air - Constitutional Appears: Well, No Acute Distress - Head Head Exam: ATRAUMATIC, NORMOCEPHALIC - Eyes Eye Exam: EOMI, PERRL - Respiratory Exam Respiratory Exam: Clear to Ausculation Bilateral, NORMAL BREATHING PATTERN - Cardiovascular Exam Cardiovascular Exam: REGULAR RHYTHM, +S1, +S2 - GI/Abdominal Exam GI & Abdominal Exam: Soft, Normal Bowel Sounds. absent: Tenderness - Neurological Exam Neurological Exam: Alert, Awake, CN II-XII Intact, Oriented x3 - Extremities Exam Extremities Exam: Full ROM, Normal Capillary Refill. absent: Calf Tenderness, Pedal Edema Plan - Assessment of Findings&Treatment Plan Mild facial nerve palsy, may be secondary to mastoiditis, no clinical or lab values indicating active infection. No further intervention required at this time. <Juanis Rock - Last Filed: 07/17/17 14:48> ADJUNCT PROFESSOR Nurse Assessment - Vital Signs Vital Signs: Rapid Response Vital Sign Blood Pressure 117/71 Pulse Rate 67 Respiratory Rate 13 Temperature 98.3 F Oxygen Saturation 98 Attending/Attestation - Attestation I have personally seen and examined this patient.: Yes I have fully participated in the care of the patient.: Yes I have reviewed all pertinent clinical information, including history, physical exam and plan: Yes Notes (Text): 07/17/17 14:48 Seen, examined, and discussed with Resident. Agree with findings and plan as above.
--- NOTE | 2017-07-17 23:16 | CP.PCM.PN ---
Subjective - Date & Time of Evaluation Date of Evaluation: 07/17/17 Time of Evaluation: 20:50 - Subjective Subjective: LASER MACHINE OPERATOR was called for Left Facial tingling and numbness. It is believed to be related to her left side mastoiditis which looks intense and affecting her significantly. We May Call ID if Mastoiditis is not controlled with IV Rocephin. Objective - Vital Signs/Intake and Output Vital Signs (last 24 hours): Temp Pulse Resp BP Pulse Ox 97.9 F 73 18 116/69 98 07/17/17 21:12 07/17/17 22:25 07/17/17 21:12 07/17/17 22:25 07/17/17 21:12 - Medications Medications: Current Medications Acetaminophen (Tylenol 325mg Tab) 650 mg PO Q6 PRN PRN Reason: Headache Last Admin: 07/17/17 22:27 Dose: 650 mg Albuterol (Ventolin Hfa 90 Mcg/Actuation (8 G)) 2 puff IH Q4H PRN PRN Reason: Shortness of Breath Enoxaparin Sodium (Lovenox) 40 mg SC DAILY JAKOB PRN Reason: Protocol Last Admin: 07/17/17 08:51 Dose: 40 mg Ceftriaxone Sodium (Rocephin Iv 1 Gm Duplex) 50 mls @ 50 mls/hr IVPB Q12H JAKOB PRN Reason: Protocol Last Admin: 07/17/17 22:51 Dose: 50 mls/hr Propranolol HCl (Inderal) 10 mg PO HS JAKOB Last Admin: 07/17/17 22:25 Dose: 10 mg - Labs Labs: 07/15/17 17:21 07/15/17 17:21 PT 11.2 Seconds (9.8-13.1) 07/15/17 17:21 INR 1.0 (0.9-1.2) 07/15/17 17:21 APTT 33.0 Seconds (25.6-37.1) 07/15/17 17:21 Assessment and Plan (1) Que-Danlos disease Status: Acute (2) Dizziness Status: Acute (3) Epistaxis Status: Acute (4) Migraine headache Status: Acute (5) Mastoiditis Status: Acute
[2017-07-18 06:46] LABS: HEMATOCRIT 34.3 % (34.0-47.0); MEAN CELL VOLUME 89.8 fl (81.0-99.0); MEAN CORPUSCULAR HEMOGLOBIN 30.5 pg (27.0-31.0); RED CELL DISTRIBUTION WIDTH 12.2 % (11.5-14.5); WHITE BLOOD COUNT 11.5 K/uL (4.8-10.8)
[2017-07-18 07:07] LABS: ALB/GLOB RATIO 1.5 (1.0-2.1); ALKALINE PHOSPHATASE 41 U/L (38-126); ALT/SGPT 30 U/L (9-52); AST/SGOT 18 U/L (14-36); BILIRUBIN,TOTAL 1.2 mg/dl (0.2-1.3); BLOOD UREA NITROGEN 10 mg/dl (7-17); CALCIUM 9.2 mg/dL (8.4-10.2); CARBON DIOXIDE 26 mmol/L (22-30); CHLORIDE 104 mmol/L (98-107); GFR AFRICAN-AMERICAN > 60; GLUCOSE,RANDOM 145 mg/dL (65-105); SODIUM 141 mmol/l (132-148)
[2017-07-18] MEDS: Enoxaparin 40 mg Syringe SC SCH (09:04)
--- NOTE | 2017-07-18 09:57 | PN ---
DATE: SUBJECTIVE: The patient is seen and examined. Interim events noted. Consults noted and appreciated. The patient had episode of INSPECTOR PRECISION. The patient feels okay now. Denies any specific complaints. No chest pain. No shortness of breath. PHYSICAL EXAMINATION: GENERAL: The patient is in no acute distress. VITAL SIGNS: Stable. HEART: S1 and S2, normal and regular. LUNGS: Good bilateral air exchange. ABDOMEN: Soft, nontender. EXTREMITIES: No edema. No calf swelling. No tenderness. No acute ischemia. CENTRAL NERVOUS SYSTEM: Essentially unchanged. DIAGNOSTIC DATA: Available diagnostic data reviewed. ASSESSMENT AND PLAN: Overall, the patient's general medical condition is stable. Telemetry monitoring does not reveal significant arrhythmia. Plan as ordered. Caesar Shultz MD
[2017-07-18] MEDS: cefTRIAXone IV 1 gm in Dextros 50 ML IVPB SCH ×2 (11:34→22:38)
--- NOTE | 2017-07-18 14:11 | CP.PCM.CON ---
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 AND "MIGRAINES" ADMITTED TO [facility] WITH FACIAL NUMBNESS AND DYSARTHTRIA WORK UP FOR STROKE AND VALV PROBLEM NEGATIVE THUS FAR CT AND MRI SHOW POSSIBLE MASTOIDITIS PT DENIES FEVER CHILLS COUGH OR EARACHE SUFFERS FROM HEADACHES ON AND OFF STARTED ON IV ROCEPHIN WITH IMPROVEMENT IN SYMPTOMS OF DYSARTHRIA Review of Systems - Constitutional Constitutional: As Per HPI, Headache, Malaise - EENT Eyes: absent: As Per HPI, Blind Spots, Blurred Vision, Change in Vision, Decreased Night Vision, Diplopia, Discharge, Dry Eye, Exophthalmos, Floaters, Irritation, Itchy Eyes, Loss of Peripheral Vision, Pain, Photophobia, Requires Corrective Lenses, Sees Flashes, Spots in Vision, Tunnel Vision, Other Visual Disturbances, Loss of Vision, Other Ears: As Per HPI Nose/Mouth/Throat: absent: As Per HPI, Epistaxis, Nasal Congestion, Nasal Discharge, Nasal Obstruction, Nasal Trauma, Nose Pain, Post Nasal Drip, Sinus Pain, Sinus Pressure, Bleeding Gums, Change in Voice, Dental Pain, Dry Mouth, Dysphagia, Halitosis, Hoarsness, Lip Swelling, Mouth Lesions, Mouth Pain, Odynophagia, Sore Throat, Throat Swelling, Tongue Swelling, Facial Pain, Neck Pain, Neck Mass, Other - Cardiovascular Cardiovascular: absent: As Per HPI, Acrocyanosis, Chest Pain, Chest Pain at Rest , Chest Pain with Activity, Claudication, Diaphoresis, Dyspnea, Dyspnea on Exertion, Edema, Irregular Heart Rhythm, Pain Radiating to Arm/Neck/Jaw, Leg Edema, Leg Ulcers, Lightheadedness, Orthopnea, Palpitations, Paroxysmal Nocturnal Dyspnea, Pedal Edema, Radiating Pain, Rapid Heart Rate, Slow Heart Rate, Syncope, Other - Respiratory Respiratory: absent: As Per HPI, Cough, Dyspnea, Hemoptysis, Dyspnea on Exertion , Wheezing, Snoring, Stridor, Pain on Inspiration, Chest Congestion, Excessive Mucous Production, Change in Mucous Color, Pain with Coughing, Other - Gastrointestinal Gastrointestinal: absent: As Per HPI, Abdominal Pain, Belching, Bloating, Change in Bowel Habits, Change in Stool Character, Coffee Ground Emesis, Constipation, Cramping, Diarrhea, Dyspepsia, Dysphagia, Early Satiety, Excessive Flatus, Fecal Incontinence, Heartburn, Hematemesis, Hematochezia, Loose Stools, Melena, Nausea, Odynophagia, Temesmus, Vomiting, Other - Genitourinary Genitourinary: absent: As Per HPI, Change in Urinary Stream, Difficulty Urinating, Dysuria, Flank Pain, Hematuria, Pyuria, Nocturia, Urinary Incontinence, Urinary Frequency, Urinary Hesitance, Urinary Urgency, Voiding Freq/Small Amts, Freq UTI, Hx Renal/Bladder Calculi, Hx /Renal Surgery, Bladder Distension, Other - Reproductive: Female Reproductive:Female: absent: As Per HPI, Amenorrhea, Amenorrhea/ Control, Currently Menstual, Cycle <21 Days, Cycle >35 Days, Cycle Variable, Menses 1-7 Days, Menses >/= 8 Days, Menses Variable, Cycle > 4 Weeks Between, No Menses for 6 Months, Heavy Menses, Light Menses, Normal Menses, Spotting Between Cycles , S/P Hysterectomy, Menopausal, Post Menopausal, Premenarche, Abnormal Vaginal Bleeding, Dysmenorrhea, Dyspareunia, Genital Lesions, Genital Pruritis, Pelvic Pain, Prolapse Symptoms, Sexual Dysfunction, Vaginal Discharge, Vaginal Dryness , Vaginal Odor, Vaginal Pruritis, Other - Menstruation Menstruation: absent: As Per HPI, Amenorrhea, Amenorrhea/ Control, Currently Menstual, Cycle <21 Days, Cycle >35 Days, Cycle Variable, Menses 1-7 Days, Menses >/= 8 Days, Menses Variable, Cycle > 4 Weeks Between, No Menses for 6 Months, Heavy Menses, Light Menses, Normal Menses, Spotting Between Cycles , S/P Hysterectomy, Menopausal, Post Menopausal, Premenarche, Abnormal Vaginal Bleeding, Dysmenorrhea, Other - Musculoskeletal Musculoskeletal: As Per HPI - Integumentary Integumentary: As Per HPI - Neurological Neurological: As Per HPI - Psychiatric Psychiatric: absent: As Per HPI, Abnormal Sleep Pattern, Anhedonia, Anxiety, Auditory Hallucinations, Behavioral Changes, Change in Appetite, Change in Libido, Confusion, Depression, Difficulty Concentrating, Hallucinations, Homicidal Ideation, Hopelessness, Irritability, Memory Loss, Mood Swings, Panic Attacks, Paranoia, Suicidal Ideation, Visual Hallucinations, Tactile Hallucinations, Other - Endocrine Endocrine: absent: As Per HPI, Change in Body Appearance, Change in Libido, Cold Intolorance, Deepening of Voice, Excessive Sweating, Fatigue, Flushing, Heat Intolorance, Increase in Ring/Shoe/Hat Size, Palpitations, Polydipsia, Polyphagia, Polyuria, Other - Hematologic/Lymphatic Hematologic: absent: As Per HPI, Easy Bleeding, Easy Bruising, Lymphadenopathy, Other Past Patient History - Infectious Disease Hx of Infectious Diseases: None - Past Medical History & Family History Past Medical History?: Yes - Past Social History Smoking Status: Never Smoked - CARDIAC Hx Cardiac Disorders: No - PULMONARY Hx Respiratory Disorders: No - NEUROLOGICAL Hx Neurological Disorder: Yes Hx Migraine: Yes - HEENT Hx HEENT Problems: No - RENAL Hx Chronic Kidney Disease: No - ENDOCRINE/METABOLIC Hx Endocrine Disorders: No - HEMATOLOGICAL/ONCOLOGICAL Hx Blood Disorders: No Hx AIDS: No Hx Human Immunodeficiency Virus (HIV): No - INTEGUMENTARY Hx Dermatological Problems: No - MUSCULOSKELETAL/RHEUMATOLOGICAL Hx Musculoskeletal Disorders: No Hx Falls: No - GASTROINTESTINAL Hx Gastrointestinal Disorders: No - GENITOURINARY/GYNECOLOGICAL Hx Genitourinary Disorders: No - PSYCHIATRIC Hx Psychophysiologic Disorder: No Hx Substance Use: No - SURGICAL HISTORY Hx Surgeries: No - ANESTHESIA Hx Anesthesia: No Hx Anesthesia Reactions: No Meds Allergies/Adverse Reactions: Allergies Allergy/AdvReac Type Severity Reaction Status Date / Time azithromycin [From Zithromax] Allergy ANAPHYLAXIS Verified 04/03/16 03:16 codeine AdvReac RASH Verified 04/03/16 03:16 diazepam [From Valium] AdvReac RASH Verified 07/15/17 16:56 - Medications Medications: Current Medications Acetaminophen (Tylenol 325mg Tab) 650 mg PO Q6 PRN PRN Reason: Headache Last Admin: 07/18/17 04:08 Dose: 650 mg Albuterol (Ventolin Hfa 90 Mcg/Actuation (8 G)) 2 puff IH Q4H PRN PRN Reason: Shortness of Breath Enoxaparin Sodium (Lovenox) 40 mg SC DAILY JAKOB PRN Reason: Protocol Last Admin: 07/18/17 09:04 Dose: 40 mg Ceftriaxone Sodium (Rocephin Iv 1 Gm Duplex) 50 mls @ 50 mls/hr IVPB Q12H JAKOB PRN Reason: Protocol Last Admin: 07/18/17 11:34 Dose: 50 mls/hr Propranolol HCl (Inderal) 10 mg PO HS [facility] Last Admin: 07/17/17 22:25 Dose: 10 mg Physical Exam - Constitutional Appears: Non-toxic, Chronically Ill - Head Exam Head Exam: ATRAUMATIC, NORMAL INSPECTION, NORMOCEPHALIC - Eye Exam Eye Exam: EOMI, Normal appearance, PERRL. absent: Scleral icterus - ENT Exam ENT Exam: Mucous Membranes Moist, Normal Oropharynx - Neck Exam Neck exam: Negative for: Lymphadenopathy, Thyromegaly - Respiratory Exam Respiratory Exam: Decreased Breath Sounds, Clear to Auscultation Bilateral - Cardiovascular Exam Cardiovascular Exam: REGULAR RHYTHM, +S1, +S2 - GI/Abdominal Exam GI & Abdominal Exam: Diminished Bowel Sounds, Soft. absent: Rebound, Rigid, Tenderness - Rectal Exam Rectal Exam: Deferred - Exam Exam: NORMAL INSPECTION - Extremities Exam Extremities exam: Positive for: pedal pulses present. Negative for: calf tenderness, pedal edema, tenderness - Back Exam Back exam: absent: CVA tenderness (L), CVA tenderness (R), paraspinal tenderness - Neurological Exam Neurological exam: Alert, CN II-XII Intact, Oriented x3, Reflexes Normal - Psychiatric Exam Psychiatric exam: Normal Mood - Skin Skin Exam: Dry, Intact Results - Vital Signs Recent Vital Signs: Last Vital Signs Temp 98.1 F 07/18/17 12:42 Pulse 84 07/18/17 12:42 Resp 20 07/18/17 12:42 BP 106/67 07/18/17 12:42 Pulse Ox 99 07/18/17 12:42 - Labs Result Diagrams: 07/18/17 05:30 07/18/17 05:30 Labs: Laboratory Results - last 24 hr 07/18/17 07/18/17 05:30 05:30 WBC 11.5 H D RBC 3.82 Hgb 11.7 L D Hct 34.3 MCV 89.8 MCH 30.5 MCHC 34.0 RDW 12.2 Plt Count 183 Sodium 141 Potassium 4.0 Chloride 104 Carbon Dioxide 26 Anion Gap 14 BUN 10 Creatinine 0.7 Est GFR ( Amer) > 60 Est GFR (Non-Af Amer) > 60 Random Glucose 145 H Calcium 9.2 Total Bilirubin 1.2 AST 18 ALT 30 Alkaline Phosphatase 41 Total Protein 7.0 Albumin 4.3 Globulin 2.8 Albumin/Globulin Ratio 1.5 Assessment & Plan (1) Dysarthria Status: Acute (2) Que-Danlos disease Status: Acute (3) Mastoiditis Status: Acute (4) Migraine headache Status: Acute - Assessment and Plan (Free Text) Assessment: 36 YO FEMALE WITH 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
[2017-07-18 21:19] LABS: IMMUNOGLOBULIN G 925.8 mg/dL (700.0-1600.0)
--- NOTE | 2017-07-18 22:29 | CP.PCM.PN ---
Subjective - Date & Time of Evaluation Date of Evaluation: 07/18/17 Time of Evaluation: 18:50 - Subjective Subjective: Seen by ID Dr Altman who recommended to continue her IV Rocephin for a total of 7 days for her Mastoiditis. He recommended a LIZETT to R/O Valvular Emboli. She is feeling better, no tingling of her face Objective - Vital Signs/Intake and Output Vital Signs (last 24 hours): Temp Pulse Resp BP Pulse Ox 98.3 F 76 20 108/70 98 07/18/17 20:57 07/18/17 20:57 07/18/17 20:57 07/18/17 20:57 07/18/17 20:57 - Medications Medications: Current Medications Acetaminophen (Tylenol 325mg Tab) 650 mg PO Q6 PRN PRN Reason: Headache Last Admin: 07/18/17 21:41 Dose: 650 mg Albuterol (Ventolin Hfa 90 Mcg/Actuation (8 G)) 2 puff IH Q4H PRN PRN Reason: Shortness of Breath Enoxaparin Sodium (Lovenox) 40 mg SC DAILY JAKOB PRN Reason: Protocol Last Admin: 07/18/17 09:04 Dose: 40 mg Ceftriaxone Sodium (Rocephin Iv 1 Gm Duplex) 50 mls @ 50 mls/hr IVPB Q12H JAKOB PRN Reason: Protocol Last Admin: 07/18/17 11:34 Dose: 50 mls/hr Propranolol HCl (Inderal) 10 mg PO HS JAKOB Last Admin: 07/17/17 22:25 Dose: 10 mg - Labs Labs: 07/18/17 05:30 07/18/17 05:30 PT 11.2 Seconds (9.8-13.1) 07/15/17 17:21 INR 1.0 (0.9-1.2) 07/15/17 17:21 APTT 33.0 Seconds (25.6-37.1) 07/15/17 17:21 Assessment and Plan (1) Que-Danlos disease Status: Acute (2) Dizziness Status: Acute (3) Epistaxis Status: Acute (4) Migraine headache Status: Acute (5) Mastoiditis Status: Acute
[2017-07-19 06:04] LABS: HEMATOCRIT 33.5 % (34.0-47.0); MEAN CELL VOLUME 90.5 fl (81.0-99.0); MEAN CORPUSCULAR HEMOGLOBIN 31.3 pg (27.0-31.0); MEAN CORPUSCULAR HGB CONC 34.6 g/dL (33.0-37.0); RED CELL DISTRIBUTION WIDTH 12.7 % (11.5-14.5); WHITE BLOOD COUNT 7.1 K/uL (4.8-10.8)
[2017-07-19 06:21] LABS: ALB/GLOB RATIO 1.5 (1.0-2.1); ALKALINE PHOSPHATASE 41 U/L (38-126); ALT/SGPT 33 U/L (9-52); AST/SGOT 23 U/L (14-36); BILIRUBIN,TOTAL 0.8 mg/dl (0.2-1.3); BLOOD UREA NITROGEN 14 mg/dl (7-17); CARBON DIOXIDE 29 mmol/L (22-30); CHLORIDE 104 mmol/L (98-107); GFR AFRICAN-AMERICAN > 60; GLUCOSE,RANDOM 110 mg/dL (65-105); POTASSIUM 4.2 MMOL/L (3.6-5.0); SODIUM 142 mmol/l (132-148); TOTAL PROTEIN 6.7 G/DL (6.3-8.2)
[2017-07-19] MEDS: Enoxaparin 40 mg Syringe SC SCH (08:34)
--- NOTE | 2017-07-19 10:53 | PQF GENQUE ---
This form is a permanent part of the medical record 07/19/17 Dr. Shultz, Please provide the underlying diagnosis causing the patient's documented symptom if known. Patient admitted with Dysarthria (symptom). Patient with a history of Migraines who is on Propranolol presents with dysarthria. Diagnosis of darien danlos made clinically, has not had genetic testing yet per H&P. CT HEAD: No acute intracranial pathology identified. MRI BRAIN: No evidence of acute intracranial hemorrhage or infarct. Clarification of your documentation is requested to better reflect the severity of illness and intensity of treatment of your patient. Indicators present [] Specify: [] [] Specify: [] [] Specify: [] [] Specify: [] Location in the medical record that reflects the above clinical findings: [] Treatment Provided: [] PHYSICIAN'S RESPONSE Based on your medical judgment of the clinical indicators outlined above please clarify the following: [] Practitioner response [] If unable to determine, please check the box, sign and date. Present On Admission (POA) Indicator: [] Present at the time of admission [] Not present at the time of admission [] Clinically Undetermined In responding to this query, please exercise your independent professional judgment. The fact that a question is asked does not imply that any particular answer is desired or expected. Thank you for your clarification on this documentation. If you have any questions please call:ext [phone] * Thank you, Lina Jewell RN CDMP [facility], [place]
--- NOTE | 2017-07-19 11:01 | PQF GENQUE ---
This form is a permanent part of the medical record 07/19/17 Dr. Shultz, Mastoiditis is documented in the Medical Record. Please specify the acuity of this condition with terms such as: Acute Chronic Acute on chronic Other (please specify in the medical record) Clinically unable to further specify Unknown Admitted with dysarthria. GSE MECHANIC called for numbness over the L cheek. ID: 36 YO FEMALE WITH HX OF REGINA DANLOS SYNDROME WELL ig g SUBCLASS DEFICIENCY AND "MIGRAINES" ADMITTED TO [facility] WITH FACIAL NUMBNESS AND DYSARTHTRIA WORK UP FOR STROKE AND VALV PROBLEM NEGATIVE THUS FAR CT AND MRI SHOW POSSIBLE MASTOIDITIS PT DENIES FEVER CHILLS COUGH OR EARACHE SUFFERS FROM HEADACHES ON AND OFF STARTED ON IV ROCEPHIN WITH IMPROVEMENT IN SYMPTOMS OF DYSARTHRIA Clarification of your documentation is requested to better reflect the severity of illness and intensity of treatment of your patient. Indicators present [] Specify: [] [] Specify: [] [] Specify: [] [] Specify: [] Location in the medical record that reflects the above clinical findings: [] Treatment Provided: [] PHYSICIAN'S RESPONSE Based on your medical judgment of the clinical indicators outlined above please clarify the following: [] Practitioner response [] If unable to determine, please check the box, sign and date. Present On Admission (POA) Indicator: [] Present at the time of admission [] Not present at the time of admission [] Clinically Undetermined In responding to this query, please exercise your independent professional judgment. The fact that a question is asked does not imply that any particular answer is desired or expected. Thank you for your clarification on this documentation. If you have any questions please call:extension [phone] * Thank you, Lina Jewell RN CDMP [facility]
[2017-07-19] MEDS: cefTRIAXone IV 1 gm in Dextros 50 ML IVPB SCH ×2 (12:11→23:01)
--- NOTE | 2017-07-19 12:37 | PN ---
DATE: 07/19/2017 SUBJECTIVE: The patient is seen and examined. Interim events noted. Consults noted and appreciated. Infectious Disease and Neurology interventions noted and appreciated. The patient remains in Progressive Care Unit on telemetry monitoring. The patient feels a little better, still has minor complaints of numbness. PHYSICAL EXAMINATION GENERAL: Patient is in no acute distress. VITAL SIGNS: Stable. The patient remains afebrile. HEENT: Pupils are reacting to light. HEART: S1 and S2, normal and regular. LUNGS: Good bilateral air exchange. ABDOMEN: Soft, nontender. EXTREMITIES: No edema. No calf swelling. No tenderness. No acute ischemia. CENTRAL NERVOUS SYSTEM: Essentially unchanged. DIAGNOSTIC DATA: Available diagnostic data reviewed. Telemetry monitoring does not reveal significant arrhythmias. ASSESSMENT AND PLAN: Overall, the patient's general medical condition is stable. Plan as ordered. Caesar Shultz MD
--- NOTE | 2017-07-19 13:28 | CP.PCM.PN ---
Subjective - Date & Time of Evaluation Date of Evaluation: 07/19/17 Time of Evaluation: 09:00 - Subjective Subjective: seen and examined discussed with pt and still c/o numbness no fever or headache Objective - Vital Signs/Intake and Output Vital Signs (last 24 hours): Temp Pulse Resp BP Pulse Ox 98 F 69 20 101/61 98 07/19/17 12:48 07/19/17 12:48 07/19/17 12:48 07/19/17 12:48 07/19/17 12:48 - Medications Medications: Current Medications Acetaminophen (Tylenol 325mg Tab) 650 mg PO Q6 PRN PRN Reason: Headache Last Admin: 07/19/17 12:10 Dose: 650 mg Albuterol (Ventolin Hfa 90 Mcg/Actuation (8 G)) 2 puff IH Q4H PRN PRN Reason: Shortness of Breath Ceftriaxone Sodium (Rocephin Iv 1 Gm Duplex) 50 mls @ 50 mls/hr IVPB Q12H JAKOB PRN Reason: Protocol Last Admin: 07/19/17 12:11 Dose: 50 mls/hr Propranolol HCl (Inderal) 10 mg PO HS JAKOB Last Admin: 07/18/17 22:38 Dose: 10 mg - Labs Labs: 07/19/17 05:00 07/19/17 05:00 PT 11.2 Seconds (9.8-13.1) 07/15/17 17:21 INR 1.0 (0.9-1.2) 07/15/17 17:21 APTT 33.0 Seconds (25.6-37.1) 07/15/17 17:21 - Constitutional Appears: Non-toxic, Chronically Ill - Head Exam Head Exam: NORMOCEPHALIC - Eye Exam Eye Exam: absent: Scleral icterus - ENT Exam ENT Exam: Mucous Membranes Dry. absent: Normal Oropharynx Additional comments: left pharynx with superficial ulcer ? no pus or exudate - Neck Exam Neck Exam: absent: Lymphadenopathy, Thyromegaly - Respiratory Exam Respiratory Exam: Decreased Breath Sounds, Clear to Ausculation Bilateral - Cardiovascular Exam Cardiovascular Exam: REGULAR RHYTHM - GI/Abdominal Exam GI & Abdominal Exam: Distended, Soft - Rectal Exam Rectal Exam: Deferred - Exam Exam: NORMAL INSPECTION - Extremities Exam Extremities Exam: absent: Pedal Edema - Back Exam Back Exam: absent: CVA tenderness (L), CVA tenderness (R) - Neurological Exam Neurological Exam: Alert, Awake, CN II-XII Intact, Oriented x3 Assessment and Plan (1) Dysarthria Status: Acute (2) Que-Danlos disease Status: Acute (3) Mastoiditis Status: Acute (4) Migraine headache Status: Acute - Assessment and Plan (Free Text) Assessment: advise ENT eval cont IV rocephin for min 7 days then PO rx follow up with Neuro
[2017-07-19] MEDS ORDERED: methylPREDNISolone 125 MG in Sodium Chloride 0.9% 50 ML IVPB ONE (18:30)
--- NOTE | 2017-07-19 18:48 | PCM.RRT ---
<Lucy Sky - Last Filed: 07/19/17 18:50> KEY HOLDER Nurse Assessment - Situation KEY HOLDER Responder Arrival Time: 18:20 Location: [address] [place] [address] Room Number: [id number] KEY HOLDER Called By: RN - IV IV Inserted during KEY HOLDER?: No - Respiratory Oxygen Delivery Method: Room Air Received Nebulizer Treatments: No Was the Patient Ventilated with Bag/Mask 100% O2?: No Secretions Suctioned?: No Was the Patient Intubated?: No Was the Patient Placed on a Ventilator?: No - Medication Medications Administered During KEY HOLDER: solumedrol 125mg - Diagnostic Test Ordered EKG: No Chest X-Ray: No CT Scan: No CPR started during KEY HOLDER?: No - Vital Signs Vital Signs: Rapid Response Vital Sign Blood Pressure 117/71 Pulse Rate 67 Respiratory Rate 13 Temperature 98.3 F Oxygen Saturation 98 - Time KEY HOLDER Ended Time KEY HOLDER Ended: 13:45 - Recommendations KEY HOLDER Level of Care Recommendations: Remain in current setting I.Reason for KEY HOLDER - A) Acute Change in Patient: (Select all that apply): Staff member or family is worried about patient Subjective: KEY HOLDER called or complaint of mild facial numbness over left cheek in 36 yr old F admitted for dysarthria with subsequent negative MRA/MRI for hemorrhage or infarct. CT head was unremarkable with finding of under aerated and sclerotic left mastoid air cells. Patient was found to be in no acute distress, vital signs stable, on physical exam cranial nerves II-XII were intact, speech is clear but mildly slurry, facial sensation equal and normal bilaterally, strength 5/5 bilaterally in upper and lower extremities. Solumedrol 125mg IVP once ordered. Labs reviewed, are wnl, no signs of infection. If patient has mastoiditis, mild facial nerve palsy is possible. Patient is stable and no further intervention is necessary at this time. Case discussed with Dr. Rock and Patient's primary care team -- Lucy Sky, PGY-1 - Neurological Status (Select all that apply): Alert, Responsive, Oriented, Verbal, Follows Commands - Respiratory Oxygen Delivery Method: Room Air - Constitutional Appears: Well, No Acute Distress - Head Head Exam: ATRAUMATIC, NORMAL INSPECTION, NORMOCEPHALIC Additional Comments: Throat: small inflamed patch, deep in throat - Eyes Eye Exam: EOMI, Normal appearance, PERRL - Respiratory Exam Respiratory Exam: Clear to Ausculation Bilateral, NORMAL BREATHING PATTERN - Cardiovascular Exam Cardiovascular Exam: REGULAR RHYTHM - GI/Abdominal Exam GI & Abdominal Exam: Soft, Normal Bowel Sounds - Neurological Exam Neurological Exam: Alert, Awake, CN II-XII Intact, Oriented x3 - Extremities Exam Extremities Exam: Full ROM, Normal Capillary Refill, Normal Inspection Plan - Assessment of Findings&Treatment Plan Mild facial nerve palsy, may be secondary to mastoiditis, no clinical or lab values indicating active infection. No further intervention required at this time. <Juanis Rock - Last Filed: 07/20/17 11:39> KEY HOLDER Nurse Assessment - Vital Signs Vital Signs: Rapid Response Vital Sign Blood Pressure 122/76 Pulse Rate 81 Respiratory Rate 20 Temperature 98.1 F Oxygen Saturation 98 Attending/Attestation - Attestation I have personally seen and examined this patient.: Yes I have fully participated in the care of the patient.: Yes I have reviewed all pertinent clinical information, including history, physical exam and plan: Yes Notes (Text): 07/20/17 11:39 Seen, examined, and discussed with Resident Dr. Patel. Agree with findings and plan as above.
--- NOTE | 2017-07-20 00:39 | CP.PCM.PN ---
Subjective - Date & Time of Evaluation Date of Evaluation: 07/19/17 Time of Evaluation: 22:25 - Subjective Subjective: She is doing better, but she was anxious about feeling facial numbness and [employer] MECHANIC was called. She is cleared and is doing well now. mastoiditis is being treated by IV Rocephin under supervision of ID Dr Altman and Dr Lexii Maynard. Objective - Vital Signs/Intake and Output Vital Signs (last 24 hours): Temp Pulse Resp BP Pulse Ox 98.3 F 73 18 104/64 96 07/20/17 00:13 07/20/17 00:13 07/20/17 00:13 07/20/17 00:13 07/20/17 00:13 - Medications Medications: Current Medications Acetaminophen (Tylenol 325mg Tab) 650 mg PO Q6 PRN PRN Reason: Headache Last Admin: 07/19/17 12:10 Dose: 650 mg Albuterol (Ventolin Hfa 90 Mcg/Actuation (8 G)) 2 puff IH Q4H PRN PRN Reason: Shortness of Breath Ceftriaxone Sodium (Rocephin Iv 1 Gm Duplex) 50 mls @ 50 mls/hr IVPB Q12H JAKOB PRN Reason: Protocol Last Admin: 07/19/17 23:01 Dose: 50 mls/hr Propranolol HCl (Inderal) 10 mg PO HS JAKOB Last Admin: 07/19/17 22:05 Dose: 10 mg - Labs Labs: 07/19/17 05:00 07/19/17 05:00 PT 11.2 Seconds (9.8-13.1) 07/15/17 17:21 INR 1.0 (0.9-1.2) 07/15/17 17:21 APTT 33.0 Seconds (25.6-37.1) 07/15/17 17:21 Assessment and Plan (1) Que-Danlos disease Status: Acute (2) Dizziness Status: Acute (3) Epistaxis Status: Acute (4) Migraine headache Status: Acute (5) Mastoiditis Status: Acute
[2017-07-20 05:58] LABS: MEAN CELL VOLUME 89.6 fl (81.0-99.0); MEAN CORPUSCULAR HEMOGLOBIN 31.1 pg (27.0-31.0); MEAN CORPUSCULAR HGB CONC 34.7 g/dL (33.0-37.0); RED CELL DISTRIBUTION WIDTH 12.3 % (11.5-14.5); WHITE BLOOD COUNT 7.7 K/uL (4.8-10.8)
[2017-07-20 06:16] LABS: ALB/GLOB RATIO 1.4 (1.0-2.1); ALKALINE PHOSPHATASE 44 U/L (38-126); ALT/SGPT 35 U/L (9-52); AST/SGOT 25 U/L (14-36); BILIRUBIN,TOTAL 0.8 mg/dl (0.2-1.3); BLOOD UREA NITROGEN 11 mg/dl (7-17); CALCIUM 9.4 mg/dL (8.4-10.2); CARBON DIOXIDE 24 mmol/L (22-30); CHLORIDE 104 mmol/L (98-107); GFR AFRICAN-AMERICAN > 60; GLUCOSE,RANDOM 158 mg/dL (65-105); POTASSIUM 4.5 MMOL/L (3.6-5.0); SODIUM 138 mmol/l (132-148); TOTAL PROTEIN 7.3 G/DL (6.3-8.2)
--- NOTE | 2017-07-20 08:26 | CON ---
DATE: 07/19/2017 REASON FOR CONSULTATION: Possible mastoiditis on the left. REQUESTING PHYSICIAN: Caesar Shultz MD CHIEF COMPLAINT: Left ear pain, on and off. HISTORY OF PRESENT ILLNESS: This is a patient that complains of left ear pain on and off for a week. It is mild in intensity, not constant. There is no hearing loss, no ear discharge. No nasal congestion. PAST MEDICAL HISTORY: As noted in the chart by me. MEDICATIONS: As noted in the chart by me. PHYSICAL EXAMINATION: HEAD: Atraumatic, normocephalic. FACE: Good facial movements bilaterally. GENERAL APPEARANCE: Well groomed, well nourished, well fed. COMMUNICATION: Communicates appropriately with a good voice. INTERNAL NOSE: Deviated septum. No masses. No lesions. No erythema. No edema. EXTERNAL NOSE: No masses. No lesions. No erythema. No edema. EARS: TM intact on both sides. No fluid behind it. ORAL CAVITY AND OROPHARYNX: No masses. No lesions. No erythema. No edema. LIPS AND GUMS: No masses. No lesions. No erythema. No edema. NECK: Supple. THYROID: No thyromegaly. No goiter. LYMPH NODES: No lymphadenopathy of the neck. NEUROLOGIC: The patient is awake, alert, oriented x3. IMAGING: CAT scan was reviewed by me and it showed some opacification of the left mastoid air cells. The middle ear space is fine. ASSESSMENT: 1. Ear pain. 2. Mastoiditis on the left not noted. 3. Deviated septum. It should also be noted that the patient does not complain of any nasal congestion. PLAN: Continue antibiotics. Patient should follow up in my office as an outpatient. Fredi Cuellar MD
--- NOTE | 2017-07-20 09:50 | PN ---
DATE: 07/17/2017 SUBJECTIVE: The patient is seen and examined. Interim events noted. The patient feels better. No chest pain. No shortness of breath. PHYSICAL EXAMINATION: GENERAL: The patient is in no acute distress. VITAL SIGNS: Stable. HEART: S1 and S2, normal and regular. LUNGS: Good bilateral air exchange. ABDOMEN: Soft, nontender. EXTREMITIES: No edema. No calf swelling. No tenderness. No acute ischemia. CENTRAL NERVOUS SYSTEM: Essentially unchanged. DIAGNOSTIC DATA: Available diagnostic data reviewed. Telemetry monitoring does not reveal significant arrhythmias. ASSESSMENT AND PLAN: Cardiology and Neurology consult noted and appreciated. Plan as ordered. Caesar Shultz MD
[2017-07-20] MEDS: cefTRIAXone IV 1 gm in Dextros 50 ML IVPB SCH ×2 (11:41→23:18)
--- NOTE | 2017-07-20 12:19 | CP.PCM.PN ---
<Carlos De León - Last Filed: 07/20/17 12:29> Subjective - Date & Time of Evaluation Date of Evaluation: 07/20/17 Time of Evaluation: 08:00 - Subjective Subjective: Patient seen and examined with attending. Has mild lisp this morning. No facial numbness today. POLE TESTER yesterday, patient having difficulty eating. She has been seen and evaluated by ENT, Dr. Cuellar. NO mastoiditis or otitis. Neurology has seen and evaluated the patient, Dr. Mckeon. ID has seen and evaluated the patient: recommended abx. Neurology/ID recommending LIZETT, will d/w Cardiology. Blood cultures ordered, no leukocytosis, pt afebrile. Objective - Vital Signs/Intake and Output Vital Signs (last 24 hours): Temp Pulse Resp BP Pulse Ox 97.6 F 82 20 112/66 98 07/20/17 08:00 07/20/17 08:00 07/20/17 08:00 07/20/17 08:00 07/20/17 08:00 - Medications Medications: Current Medications Acetaminophen (Tylenol 325mg Tab) 650 mg PO Q6 PRN PRN Reason: Headache Last Admin: 07/19/17 12:10 Dose: 650 mg Albuterol (Ventolin Hfa 90 Mcg/Actuation (8 G)) 2 puff IH Q4H PRN PRN Reason: Shortness of Breath Enoxaparin Sodium (Lovenox) 30 mg SC DAILY [facility] PRN Reason: Protocol Ceftriaxone Sodium (Rocephin Iv 1 Gm Duplex) 50 mls @ 50 mls/hr IVPB Q12H [facility] PRN Reason: Protocol Last Admin: 07/20/17 11:41 Dose: 50 mls/hr Propranolol HCl (Inderal) 10 mg PO HS [facility] Last Admin: 07/19/17 22:05 Dose: 10 mg Thiamine HCl (Vitamin B1 Tab) 100 mg PO DAILY [facility] Last Admin: 07/20/17 10:06 Dose: 100 mg - Labs Labs: 07/20/17 04:25 07/20/17 04:25 PT 11.2 Seconds (9.8-13.1) 07/15/17 17:21 INR 1.0 (0.9-1.2) 07/15/17 17:21 APTT 33.0 Seconds (25.6-37.1) 07/15/17 17:21 - Constitutional Appears: No Acute Distress - Head Exam Head Exam: NORMAL INSPECTION, NORMOCEPHALIC - Eye Exam Eye Exam: Normal appearance - ENT Exam ENT Exam: Mucous Membranes Moist - Respiratory Exam Respiratory Exam: NORMAL BREATHING PATTERN - Cardiovascular Exam Cardiovascular Exam: REGULAR RHYTHM, +S1, +S2 - Neurological Exam Neurological Exam: Alert, Awake, CN II-XII Intact, Normal Gait, Oriented x3 - Psychiatric Exam Psychiatric exam: Normal Affect, Normal Mood - Skin Skin Exam: Dry, Intact, Normal Color, Warm Assessment and Plan (1) Dysarthria Assessment & Plan: 36 year old female admitted with dysarthria, currently being treated for mastoiditis with recurring episodes of facial numbness and dysarthria. The dysarthria comes and goes, this morning patient had mild lisp but was able to speak clearly otherwise. Cranial nerves intact imaging reviewed. HIV/rpr/vit b12/EULOGIO all negative. neurology is following, rec's appreciated. Status: Acute (2) Facial numbness Assessment & Plan: possibly manifestation of mastoiditis, imaging +for mastoiditis currently being treated for mastoiditis with IV antibiotics potentially secondary to vitamin deficiency although maryley given her presentation will start thiamine, vitamin b12 level was normal she takes vitamins at home daily Status: Acute (3) Que-Danlos disease Status: Acute (4) Mastoiditis Assessment & Plan: clinically patient does not have signs of infection, no fever, mild leukocytosis on admission that has resolved. patient on iv rocephin seen by ID seen by ENT, would like second opinion-consult to Dr. Garibay Status: Acute (5) DVT prophylaxis Assessment & Plan: lovenox Status: Acute <Shultz,Caesar K - Last Filed: 07/22/17 10:35> Objective - Vital Signs/Intake and Output Vital Signs (last 24 hours): Temp Pulse Resp BP Pulse Ox 97.8 F 78 18 105/70 98 07/22/17 08:12 07/22/17 08:12 07/22/17 08:12 07/22/17 08:12 07/22/17 08:12 - Medications Medications: Current Medications Acetaminophen (Tylenol 325mg Tab) 650 mg PO Q6 PRN PRN Reason: Headache Last Admin: 07/19/17 12:10 Dose: 650 mg Albuterol (Ventolin Hfa 90 Mcg/Actuation (8 G)) 2 puff IH Q4H PRN PRN Reason: Shortness of Breath Last Admin: 07/21/17 12:10 Dose: 2 puff Enoxaparin Sodium (Lovenox) 30 mg SC DAILY [facility] PRN Reason: Protocol Last Admin: 07/22/17 09:35 Dose: 30 mg Ceftriaxone Sodium (Rocephin Iv 1 Gm Duplex) 50 mls @ 50 mls/hr IVPB Q12H [facility] PRN Reason: Protocol Last Admin: 07/21/17 23:45 Dose: 50 mls/hr Propranolol HCl (Inderal) 10 mg PO HS [facility] Last Admin: 07/21/17 22:46 Dose: 10 mg Thiamine HCl (Vitamin B1 Tab) 100 mg PO DAILY [facility] Last Admin: 07/22/17 09:36 Dose: 100 mg - Labs Labs: 07/20/17 04:25 07/20/17 04:25 PT 11.2 Seconds (9.8-13.1) 07/15/17 17:21 INR 1.0 (0.9-1.2) 07/15/17 17:21 APTT 33.0 Seconds (25.6-37.1) 07/15/17 17:21 Assessment and Plan - Assessment and Plan (Free Text) Assessment: Patient was personally seen and examined by me in rounds with residents. Available labs and diagnostic data reviewed. Case, Patient's condition and management plan discussed with residents in rounds. Agree with resident's progress note. Plan: As ordered.
[2017-07-20] MEDS: Enoxaparin 30 mg Syringe SC SCH (13:11)
--- NOTE | 2017-07-20 19:53 | CP.PCM.PN ---
Subjective - Date & Time of Evaluation Date of Evaluation: 07/20/17 Time of Evaluation: 19:45 - Subjective Subjective: came to evaluate patient however she is not in the room. Received a call from RN DOCUMENTATION SPECIALIST regarding request for LIZETT. Transthoracic echocardiogram reveals normal left ventricular function and no regional wall motion abnormalities. There is no evidence of valvular dysfunction, and no clear valvular abnormalities. The patient has been in sinus rhythm and therefore the likely of cardiac thromboemboli is low. There are no current Chinchilla criteria present for endocarditis. The yield from LIZETT may be low. Recommend blood culture to assess for bacteremia. will follow clincally and reassess LIZETT after discussion with the patient. Objective - Vital Signs/Intake and Output Vital Signs (last 24 hours): Temp Pulse Resp BP Pulse Ox 98.4 F 82 19 108/70 99 07/20/17 19:43 07/20/17 19:43 07/20/17 19:43 07/20/17 19:43 07/20/17 19:43 Intake and Output: 07/20/17 07/21/17 18:59 06:59 Intake Total 750 Balance 750 - Medications Medications: Current Medications Acetaminophen (Tylenol 325mg Tab) 650 mg PO Q6 PRN PRN Reason: Headache Last Admin: 07/19/17 12:10 Dose: 650 mg Albuterol (Ventolin Hfa 90 Mcg/Actuation (8 G)) 2 puff IH Q4H PRN PRN Reason: Shortness of Breath Enoxaparin Sodium (Lovenox) 30 mg SC DAILY [facility] PRN Reason: Protocol Last Admin: 07/20/17 13:11 Dose: 30 mg Ceftriaxone Sodium (Rocephin Iv 1 Gm Duplex) 50 mls @ 50 mls/hr IVPB Q12H [facility] PRN Reason: Protocol Last Admin: 07/20/17 11:41 Dose: 50 mls/hr Propranolol HCl (Inderal) 10 mg PO HS [facility] Last Admin: 07/19/17 22:05 Dose: 10 mg Thiamine HCl (Vitamin B1 Tab) 100 mg PO DAILY [facility] Last Admin: 07/20/17 10:06 Dose: 100 mg - Labs Labs: 07/20/17 04:25 07/20/17 04:25 PT 11.2 Seconds (9.8-13.1) 07/15/17 17:21 INR 1.0 (0.9-1.2) 07/15/17 17:21 APTT 33.0 Seconds (25.6-37.1) 07/15/17 17:21 Assessment and Plan (1) Dysarthria Status: Acute
--- NOTE | 2017-07-21 00:54 | CP.PCM.PN ---
Subjective - Date & Time of Evaluation Date of Evaluation: 07/20/17 Time of Evaluation: 23:00 - Subjective Subjective: Negative LIZETT and Dr Crouch is recommending a Blood Culture to R/O Infection he said that the risk of thromboembolic complications is weak due to her regular sinus rhythm. Objective - Vital Signs/Intake and Output Vital Signs (last 24 hours): Temp Pulse Resp BP Pulse Ox 98.4 F 82 19 108/70 99 07/20/17 19:43 07/20/17 22:08 07/20/17 19:43 07/20/17 22:08 07/20/17 19:43 Intake and Output: 07/20/17 07/21/17 18:59 06:59 Intake Total 750 Balance 750 - Medications Medications: Current Medications Acetaminophen (Tylenol 325mg Tab) 650 mg PO Q6 PRN PRN Reason: Headache Last Admin: 07/19/17 12:10 Dose: 650 mg Albuterol (Ventolin Hfa 90 Mcg/Actuation (8 G)) 2 puff IH Q4H PRN PRN Reason: Shortness of Breath Enoxaparin Sodium (Lovenox) 30 mg SC DAILY [facility] PRN Reason: Protocol Last Admin: 07/20/17 13:11 Dose: 30 mg Ceftriaxone Sodium (Rocephin Iv 1 Gm Duplex) 50 mls @ 50 mls/hr IVPB Q12H [facility] PRN Reason: Protocol Last Admin: 07/20/17 23:18 Dose: 50 mls/hr Propranolol HCl (Inderal) 10 mg PO HS [facility] Last Admin: 07/20/17 22:08 Dose: 10 mg Thiamine HCl (Vitamin B1 Tab) 100 mg PO DAILY [facility] Last Admin: 07/20/17 10:06 Dose: 100 mg - Labs Labs: 07/20/17 04:25 07/20/17 04:25 PT 11.2 Seconds (9.8-13.1) 07/15/17 17:21 INR 1.0 (0.9-1.2) 07/15/17 17:21 APTT 33.0 Seconds (25.6-37.1) 07/15/17 17:21 Assessment and Plan (1) Que-Danlos disease Status: Acute (2) Dizziness Status: Acute (3) Epistaxis Status: Acute (4) Migraine headache Status: Acute (5) Mastoiditis Status: Acute
[2017-07-21] MEDS: Enoxaparin 30 mg Syringe SC SCH (08:26)
[2017-07-21] MEDS: cefTRIAXone IV 1 gm in Dextros 50 ML IVPB SCH ×2 (10:48→23:45)
--- NOTE | 2017-07-21 11:49 | CP.PCM.PN ---
<Carlos De León - Last Filed: 07/21/17 11:50> Subjective - Date & Time of Evaluation Date of Evaluation: 07/21/17 Time of Evaluation: 09:00 - Subjective Subjective: No overnight events. Patient seen and examined with attending. She still has some numbness/weakness of tongue. She does have some difficulty while eating. Patient needs 7 days of IV abx as per ID. today is Day 5. She has been hemodynamically stable. May be transferred to general medical floor. Objective - Vital Signs/Intake and Output Vital Signs (last 24 hours): Temp Pulse Resp BP Pulse Ox 98.3 F 74 20 95/50 L 98 07/21/17 08:31 07/21/17 08:31 07/21/17 08:31 07/21/17 08:31 07/21/17 08:31 - Medications Medications: Current Medications Acetaminophen (Tylenol 325mg Tab) 650 mg PO Q6 PRN PRN Reason: Headache Last Admin: 07/19/17 12:10 Dose: 650 mg Albuterol (Ventolin Hfa 90 Mcg/Actuation (8 G)) 2 puff IH Q4H PRN PRN Reason: Shortness of Breath Enoxaparin Sodium (Lovenox) 30 mg SC DAILY [facility] PRN Reason: Protocol Last Admin: 07/21/17 08:26 Dose: 30 mg Ceftriaxone Sodium (Rocephin Iv 1 Gm Duplex) 50 mls @ 50 mls/hr IVPB Q12H [facility] PRN Reason: Protocol Last Admin: 07/21/17 10:48 Dose: 50 mls/hr Propranolol HCl (Inderal) 10 mg PO HS [facility] Last Admin: 07/20/17 22:08 Dose: 10 mg Thiamine HCl (Vitamin B1 Tab) 100 mg PO DAILY [facility] Last Admin: 07/21/17 08:27 Dose: 100 mg - Labs Labs: 07/20/17 04:25 07/20/17 04:25 PT 11.2 Seconds (9.8-13.1) 07/15/17 17:21 INR 1.0 (0.9-1.2) 07/15/17 17:21 APTT 33.0 Seconds (25.6-37.1) 07/15/17 17:21 - Constitutional Appears: Well, No Acute Distress - Head Exam Head Exam: ATRAUMATIC, NORMAL INSPECTION, NORMOCEPHALIC - Eye Exam Eye Exam: EOMI, Normal appearance, PERRL - ENT Exam ENT Exam: Mucous Membranes Moist Additional comments: speech is fluent, does have mild lisp - Respiratory Exam Respiratory Exam: NORMAL BREATHING PATTERN - Cardiovascular Exam Cardiovascular Exam: REGULAR RHYTHM - Neurological Exam Neurological Exam: Alert, Awake, CN II-XII Intact, Normal Gait, Oriented x3 - Psychiatric Exam Psychiatric exam: Normal Affect, Normal Mood - Skin Skin Exam: Dry, Intact, Normal Color, Warm Assessment and Plan (1) Dysarthria Assessment & Plan: 36 year old female admitted with dysarthria, currently being treated for mastoiditis with recurring episodes of facial numbness and dysarthria. The dysarthria comes and goes, still has lisp. slowly improving Dyarthria and facial numbness could be secondary to neuropathy related to Que Danlos. Will continue with thiamine only for now, can consider starting gabapentin/ lyrica. 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 Status: Acute (5) DVT prophylaxis Assessment & Plan: lovenox ambulation Status: Acute <Caesar Shultz K - Last Filed: 07/22/17 10:37> Objective - Vital Signs/Intake and Output Vital Signs (last 24 hours): Temp Pulse Resp BP Pulse Ox 97.8 F 78 18 105/70 98 07/22/17 08:12 07/22/17 08:12 07/22/17 08:12 07/22/17 08:12 07/22/17 08:12 - Medications Medications: Current Medications Acetaminophen (Tylenol 325mg Tab) 650 mg PO Q6 PRN PRN Reason: Headache Last Admin: 07/19/17 12:10 Dose: 650 mg Albuterol (Ventolin Hfa 90 Mcg/Actuation (8 G)) 2 puff IH Q4H PRN PRN Reason: Shortness of Breath Last Admin: 07/21/17 12:10 Dose: 2 puff Enoxaparin Sodium (Lovenox) 30 mg SC DAILY [facility] PRN Reason: Protocol Last Admin: 07/22/17 09:35 Dose: 30 mg Ceftriaxone Sodium (Rocephin Iv 1 Gm Duplex) 50 mls @ 50 mls/hr IVPB Q12H [facility] PRN Reason: Protocol Last Admin: 07/21/17 23:45 Dose: 50 mls/hr Propranolol HCl (Inderal) 10 mg PO HS [facility] Last Admin: 07/21/17 22:46 Dose: 10 mg Thiamine HCl (Vitamin B1 Tab) 100 mg PO DAILY [facility] Last Admin: 07/22/17 09:36 Dose: 100 mg - Labs Labs: 07/20/17 04:25 07/20/17 04:25 PT 11.2 Seconds (9.8-13.1) 07/15/17 17:21 INR 1.0 (0.9-1.2) 07/15/17 17:21 APTT 33.0 Seconds (25.6-37.1) 07/15/17 17:21 Assessment and Plan - Assessment and Plan (Free Text) Assessment: Patient was personally seen and examined by me in rounds with residents. Available labs and diagnostic data reviewed. Case, Patient's condition and management plan discussed with residents in rounds. Agree with resident's progress note. Plan: As ordered.
--- NOTE | 2017-07-21 13:44 | CP.PCM.PN ---
Subjective - Date & Time of Evaluation Date of Evaluation: 07/21/17 Time of Evaluation: 09:00 - Subjective Subjective: events noted appears well but still c/o numbness and dysarthria all cultures and serologies neg thus far LIZETT was negative as per dr Mckeon IV rx to continue Objective - Vital Signs/Intake and Output Vital Signs (last 24 hours): Temp Pulse Resp BP Pulse Ox 98.1 F 84 20 96/60 L 100 07/21/17 12:23 07/21/17 12:23 07/21/17 12:23 07/21/17 12:23 07/21/17 12:23 - Medications Medications: Current Medications Acetaminophen (Tylenol 325mg Tab) 650 mg PO Q6 PRN PRN Reason: Headache Last Admin: 07/19/17 12:10 Dose: 650 mg Albuterol (Ventolin Hfa 90 Mcg/Actuation (8 G)) 2 puff IH Q4H PRN PRN Reason: Shortness of Breath Last Admin: 07/21/17 12:10 Dose: 2 puff Enoxaparin Sodium (Lovenox) 30 mg SC DAILY [facility] PRN Reason: Protocol Last Admin: 07/21/17 08:26 Dose: 30 mg Ceftriaxone Sodium (Rocephin Iv 1 Gm Duplex) 50 mls @ 50 mls/hr IVPB Q12H [facility] PRN Reason: Protocol Last Admin: 07/21/17 10:48 Dose: 50 mls/hr Propranolol HCl (Inderal) 10 mg PO HS [facility] Last Admin: 07/20/17 22:08 Dose: 10 mg Thiamine HCl (Vitamin B1 Tab) 100 mg PO DAILY [facility] Last Admin: 07/21/17 08:27 Dose: 100 mg - Labs Labs: 07/20/17 04:25 07/20/17 04:25 PT 11.2 Seconds (9.8-13.1) 07/15/17 17:21 INR 1.0 (0.9-1.2) 07/15/17 17:21 APTT 33.0 Seconds (25.6-37.1) 07/15/17 17:21 - Constitutional Appears: Non-toxic, Chronically Ill - Head Exam Head Exam: NORMOCEPHALIC - Eye Exam Eye Exam: PERRL. absent: Scleral icterus - ENT Exam ENT Exam: Mucous Membranes Dry - Neck Exam Neck Exam: absent: Lymphadenopathy - Respiratory Exam Respiratory Exam: Decreased Breath Sounds - Cardiovascular Exam Cardiovascular Exam: REGULAR RHYTHM - GI/Abdominal Exam GI & Abdominal Exam: Distended, Soft. absent: Tenderness - Rectal Exam Rectal Exam: Deferred - Exam Exam: NORMAL INSPECTION - Extremities Exam Extremities Exam: absent: Calf Tenderness, Pedal Edema - Back Exam Back Exam: absent: CVA tenderness (L), CVA tenderness (R) - Neurological Exam Neurological Exam: Alert, Awake, Oriented x3 Neuro motor strength exam: Left Upper Extremity: 5, Right Upper Extremity: 5, Left Lower Extremity: 5, Right Lower Extremity: 5 - Psychiatric Exam Psychiatric exam: Normal Mood - Skin Skin Exam: Dry, Intact Assessment and Plan (1) Dysarthria Status: Acute (2) Que-Danlos disease Status: Chronic (3) Mastoiditis Status: Acute (4) Migraine headache Status: Acute - Assessment and Plan (Free Text) Assessment: cont IV rx for 7 days then PO will need speech rx and close neuro follow up as out pt
[2017-07-21 18:38] LABS: LYME IGG NEGATIVE (NEGATIVE)
[2017-07-21 18:48] LABS: LYME IGM NEGATIVE (NEGATIVE)
--- NOTE | 2017-07-21 23:52 | CP.PCM.PN ---
Subjective - Date & Time of Evaluation Date of Evaluation: 07/21/17 Time of Evaluation: 21:00 - Subjective Subjective: She is stable and is receiving IV Rocephin for her Left side Mastoiditis day 5 /. She has some sensory changes on the Left side of the face and the tongue at times is heavy. It might be organic as well as it might be as a stress reaction. Objective - Vital Signs/Intake and Output Vital Signs (last 24 hours): Temp Pulse Resp BP Pulse Ox 98.8 F 87 20 106/75 98 07/21/17 19:08 07/21/17 22:46 07/21/17 19:08 07/21/17 22:46 07/21/17 19:08 Intake and Output: 07/21/17 07/22/17 18:59 06:59 Intake Total 1050 Balance 1050 - Medications Medications: Current Medications Acetaminophen (Tylenol 325mg Tab) 650 mg PO Q6 PRN PRN Reason: Headache Last Admin: 07/19/17 12:10 Dose: 650 mg Albuterol (Ventolin Hfa 90 Mcg/Actuation (8 G)) 2 puff IH Q4H PRN PRN Reason: Shortness of Breath Last Admin: 07/21/17 12:10 Dose: 2 puff Enoxaparin Sodium (Lovenox) 30 mg SC DAILY [facility] PRN Reason: Protocol Last Admin: 07/21/17 08:26 Dose: 30 mg Ceftriaxone Sodium (Rocephin Iv 1 Gm Duplex) 50 mls @ 50 mls/hr IVPB Q12H [facility] PRN Reason: Protocol Last Admin: 07/21/17 23:45 Dose: 50 mls/hr Propranolol HCl (Inderal) 10 mg PO HS [facility] Last Admin: 07/21/17 22:46 Dose: 10 mg Thiamine HCl (Vitamin B1 Tab) 100 mg PO DAILY [facility] Last Admin: 07/21/17 08:27 Dose: 100 mg - Labs Labs: 07/20/17 04:25 07/20/17 04:25 PT 11.2 Seconds (9.8-13.1) 07/15/17 17:21 INR 1.0 (0.9-1.2) 07/15/17 17:21 APTT 33.0 Seconds (25.6-37.1) 07/15/17 17:21 Assessment and Plan (1) Que-Danlos disease Status: Chronic (2) Dizziness Status: Acute (3) Epistaxis Status: Acute (4) Migraine headache Status: Acute (5) Mastoiditis Status: Acute
[2017-07-22 08:04] LABS: LYME DISEASE SCREEN <0.90 index
[2017-07-22] MEDS: Enoxaparin 30 mg Syringe SC SCH (09:35)
[2017-07-22] MEDS: cefTRIAXone IV 1 gm in Dextros 50 ML IVPB SCH ×2 (11:32→23:32)
--- NOTE | 2017-07-22 11:37 | CP.PCM.PN ---
Subjective - Date & Time of Evaluation Date of Evaluation: 07/22/17 Time of Evaluation: 11:35 - Subjective Subjective: Patient seen and examined with Dr. Shultz. Patient still has some tongue heaviness. She is a little better today. On day 6 of 7 of IV antibiotics for mastoiditis. 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 There may be some element of conversion disorder secondary to stress vs mastoiditis vs que danlos disease. Will continue with present management Objective - Vital Signs/Intake and Output Vital Signs (last 24 hours): Temp Pulse Resp BP Pulse Ox 97.8 F 78 18 105/70 98 07/22/17 08:12 07/22/17 08:12 07/22/17 08:12 07/22/17 08:12 07/22/17 08:12 - Medications Medications: Current Medications Acetaminophen (Tylenol 325mg Tab) 650 mg PO Q6 PRN PRN Reason: Headache Last Admin: 07/19/17 12:10 Dose: 650 mg Albuterol (Ventolin Hfa 90 Mcg/Actuation (8 G)) 2 puff IH Q4H PRN PRN Reason: Shortness of Breath Last Admin: 07/21/17 12:10 Dose: 2 puff Enoxaparin Sodium (Lovenox) 30 mg SC DAILY [facility] PRN Reason: Protocol Last Admin: 07/22/17 09:35 Dose: 30 mg Ceftriaxone Sodium (Rocephin Iv 1 Gm Duplex) 50 mls @ 50 mls/hr IVPB Q12H [facility] PRN Reason: Protocol Last Admin: 07/22/17 11:32 Dose: 50 mls/hr Propranolol HCl (Inderal) 10 mg PO HS [facility] Last Admin: 07/21/17 22:46 Dose: 10 mg Thiamine HCl (Vitamin B1 Tab) 100 mg PO DAILY [facility] Last Admin: 07/22/17 09:36 Dose: 100 mg - Labs Labs: 07/20/17 04:25 07/20/17 04:25 PT 11.2 Seconds (9.8-13.1) 07/15/17 17:21 INR 1.0 (0.9-1.2) 07/15/17 17:21 APTT 33.0 Seconds (25.6-37.1) 07/15/17 17:21 - Constitutional Appears: Non-toxic, No Acute Distress - Head Exam Head Exam: ATRAUMATIC, NORMAL INSPECTION, NORMOCEPHALIC - Eye Exam Eye Exam: Normal appearance, PERRL - ENT Exam ENT Exam: Mucous Membranes Moist - Neck Exam Neck Exam: Full ROM - Respiratory Exam Respiratory Exam: NORMAL BREATHING PATTERN - Cardiovascular Exam Cardiovascular Exam: REGULAR RHYTHM - Neurological Exam Neurological Exam: Alert, Awake, Normal Gait, Oriented x3 Neuro motor strength exam: Left Upper Extremity: 5, Right Upper Extremity: 5, Left Lower Extremity: 5, Right Lower Extremity: 5 - Psychiatric Exam Psychiatric exam: Normal Affect, Normal Mood - Skin Skin Exam: Dry, Intact, Normal Color, Warm Assessment and Plan (1) Dysarthria Assessment & Plan: 36 year old female admitted with dysarthria, currently being treated for mastoiditis with recurring episodes of facial numbness and dysarthria. The dysarthria comes and goes. 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
--- NOTE | 2017-07-22 15:29 | CP.PCM.PN ---
Subjective - Date & Time of Evaluation Date of Evaluation: 07/22/17 Time of Evaluation: 15:25 - Subjective Subjective: Abnormal Rh Factor Ig G 9 (Normal is 1to 6) She is doing well and her speech is reported to be normal, except at certain moments where she become briefly slurred and feels sensory changes on the left side of face for a short period. She is getting her IV Rocephin day 02/10. Objective - Vital Signs/Intake and Output Vital Signs (last 24 hours): Temp Pulse Resp BP Pulse Ox 97.8 F 78 18 105/70 98 07/22/17 08:12 07/22/17 08:12 07/22/17 08:12 07/22/17 08:12 07/22/17 08:12 - Medications Medications: Current Medications Acetaminophen (Tylenol 325mg Tab) 650 mg PO Q6 PRN PRN Reason: Headache Last Admin: 07/22/17 14:25 Dose: 650 mg Albuterol (Ventolin Hfa 90 Mcg/Actuation (8 G)) 2 puff IH Q4H PRN PRN Reason: Shortness of Breath Last Admin: 07/21/17 12:10 Dose: 2 puff Enoxaparin Sodium (Lovenox) 30 mg SC DAILY [facility] PRN Reason: Protocol Last Admin: 07/22/17 09:35 Dose: 30 mg Ceftriaxone Sodium (Rocephin Iv 1 Gm Duplex) 50 mls @ 50 mls/hr IVPB Q12H [facility] PRN Reason: Protocol Last Admin: 07/22/17 11:32 Dose: 50 mls/hr Propranolol HCl (Inderal) 10 mg PO HS [facility] Last Admin: 07/21/17 22:46 Dose: 10 mg Thiamine HCl (Vitamin B1 Tab) 100 mg PO DAILY [facility] Last Admin: 07/22/17 09:36 Dose: 100 mg - Labs Labs: 07/20/17 04:25 07/20/17 04:25 PT 11.2 Seconds (9.8-13.1) 07/15/17 17:21 INR 1.0 (0.9-1.2) 07/15/17 17:21 APTT 33.0 Seconds (25.6-37.1) 07/15/17 17:21 Assessment and Plan (1) Que-Danlos disease Status: Chronic (2) Dizziness Status: Acute (3) Epistaxis Status: Acute (4) Migraine headache Status: Acute (5) Mastoiditis Status: Acute
[2017-07-23 01:34] VITALS: RESP 20
[2017-07-23 07:04] LABS: HEMATOCRIT 34.5 % (34.0-47.0); MEAN CELL VOLUME 89.7 fl (81.0-99.0); MEAN CORPUSCULAR HEMOGLOBIN 31.3 pg (27.0-31.0); MEAN CORPUSCULAR HGB CONC 34.9 g/dL (33.0-37.0); RED CELL DISTRIBUTION WIDTH 12.5 % (11.5-14.5); WHITE BLOOD COUNT 5.5 K/uL (4.8-10.8)
[2017-07-23 07:15] LABS: BLOOD UREA NITROGEN 11 mg/dl (7-17); CARBON DIOXIDE 28 mmol/L (22-30); CHLORIDE 104 mmol/L (98-107); GFR AFRICAN-AMERICAN > 60; GLUCOSE,RANDOM 109 mg/dL (65-105); POTASSIUM 4.1 MMOL/L (3.6-5.0); SODIUM 141 mmol/l (132-148)
[2017-07-23 07:22] VITALS: BP 104/72; PULSE 77; TEMP 98; O2SAT 99
[2017-07-23] MEDS: Enoxaparin 30 mg Syringe SC SCH (08:37)
[2017-07-23] MEDS: cefTRIAXone IV 1 gm in Dextros 50 ML IVPB SCH (11:19)
--- NOTE | 2017-07-23 11:20 | CP.PCM.PCO ---
Physician Communication Note - Physician Communication Note Physician Communication Note: Per Dr. Altman, pt to continue Augmentin 875 bid x 10days. Rx given
--- NOTE | 2017-07-23 11:48 | CP.PCM.DIS ---
Provider - Provider Date of Admission: 07/16/17 20:55 Attending physician: Caesar Shultz MD Consults: ID: Dr. Altman Neurology: Dr. Mckeon ENT: Dr. Cuellar Time Spent in preparation of Discharge (in minutes): 35 Diagnosis - Discharge Diagnosis (1) Dysarthria Status: Acute Comment: improving (2) Facial numbness Status: Acute Comment: improving. 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 d/c on augmentin as per ID (5) DVT prophylaxis Status: Resolved Hospital Course - Lab Results Lab Results: Micro Results 07/20/17 10:00 Blood-Venous Blood Culture - Preliminary NO GROWTH AFTER 3 DAYS Most Recent Lab Values WBC 5.5 K/uL (4.8-10.8) 07/23/17 06:20 RBC 3.85 Mil/uL (3.80-5.20) 07/23/17 06:20 Hgb 12.1 g/dL (12.0-16.0) 07/23/17 06:20 Hct 34.5 % (34.0-47.0) 07/23/17 06:20 MCV 89.7 fl (81.0-99.0) 07/23/17 06:20 MCH 31.3 pg (27.0-31.0) H 07/23/17 06:20 MCHC 34.9 g/dL (33.0-37.0) 07/23/17 06:20 RDW 12.5 % (11.5-14.5) 07/23/17 06:20 Plt Count 162 K/uL (130-400) 07/23/17 06:20 MPV 10.4 fl (7.2-11.7) 07/15/17 17:21 Neut % (Auto) 62.4 % (50.0-75.0) 07/15/17 17:21 Lymph % (Auto) 30.1 % (20.0-40.0) 07/15/17 17:21 [place] % (Auto) 5.9 % (0.0-10.0) 07/15/17 17:21 Eos % (Auto) 1.2 % (0.0-4.0) 07/15/17 17:21 Baso % (Auto) 0.4 % (0.0-2.0) 07/15/17 17:21 Neut # 4.4 K/uL (1.8-7.0) 07/15/17 17:21 Lymph # 2.1 K/uL (1.0-4.3) 07/15/17 17:21 [place] # 0.4 K/uL (0.0-0.8) 07/15/17 17:21 Eos # 0.1 K/uL (0.0-0.7) 07/15/17 17:21 Baso # 0.0 K/uL (0.0-0.2) 07/15/17 17:21 ESR 8 mm/hr (0-20) 07/16/17 04:20 PT 11.2 Seconds (9.8-13.1) 07/15/17 17:21 INR 1.0 (0.9-1.2) 07/15/17 17:21 APTT 33.0 Seconds (25.6-37.1) 07/15/17 17:21 Sodium 141 mmol/l (132-148) 07/23/17 06:20 Potassium 4.1 MMOL/L (3.6-5.0) 07/23/17 06:20 Chloride 104 mmol/L (98-107) 07/23/17 06:20 Carbon Dioxide 28 mmol/L (22-30) 07/23/17 06:20 Anion Gap 13 (10-20) 07/23/17 06:20 BUN 11 mg/dl (7-17) 07/23/17 06:20 Creatinine 0.8 mg/dl (0.7-1.2) 07/23/17 06:20 Est GFR ( Amer) > 60 07/23/17 06:20 Est GFR (Non-Af Amer) > 60 07/23/17 06:20 POC Glucose (mg/dL) 108 mg/dL (65-110) 07/15/17 17:15 Random Glucose 109 mg/dL (65-105) H 07/23/17 06:20 Hemoglobin A1c 5.4 % (4.2-6.5) 07/15/17 17:21 Uric Acid 4.0 mg/Dl (2.2-7.5) 07/16/17 04:20 Calcium 9.0 mg/dL (8.4-10.2) 07/23/17 06:20 Total Bilirubin 0.8 mg/dl (0.2-1.3) 07/20/17 04:25 AST 25 U/L (14-36) 07/20/17 04:25 ALT 35 U/L (9-52) 07/20/17 04:25 Alkaline Phosphatase 44 U/L (38-126) 07/20/17 04:25 Troponin I < 0.0120 ng/mL (0.00-0.120) 07/15/17 17:21 C-React Prot High Sens 0.56 mg/L (1.00-3.00) L 07/18/17 15:30 Total Protein 7.3 G/DL (6.3-8.2) 07/20/17 04:25 Albumin 4.3 g/dL (3.5-5.0) 07/20/17 04:25 Globulin 3.0 gm/dL (2.2-3.9) 07/20/17 04:25 Albumin/Globulin Ratio 1.4 (1.0-2.1) 07/20/17 04:25 Triglycerides 42 mg/DL (0-149) D 07/16/17 04:20 Cholesterol 132 mg/dL (0-199) 07/16/17 04:20 LDL Cholesterol Direct 49 mg/dL (0-129) 07/16/17 04:20 HDL Cholesterol 60 MG/DL (30-70) 07/16/17 04:20 Vitamin B12 971 pg/mL (239-931) H 07/16/17 08:40 25-OH Vitamin D Total 36.4 NG/ML (30.0-100.0) 07/16/17 04:20 Procalcitonin < 0.05 NG/ML (0.19-0.49) L 07/18/17 15:30 TSH 3rd Generation 2.96 mIU/ML (0.46-4.68) 07/16/17 04:20 IgG 925.8 mg/dL (700.0-1600.0) 07/18/17 15:30 Rheumatoid Factor IgG 9 U (<=6) H 07/16/17 04:20 Rheumatoid Factor IgA <5 U (<=6) 07/16/17 04:20 Rheumatoid Factor IgM <5 U (<=6) 07/16/17 04:20 EULOGIO Screen Negative (Negative) 07/16/17 04:20 RPR Nonreactive (NONREACTIVE) 07/18/17 17:00 Lyme Disease Screen <0.90 index 07/21/17 13:58 Lyme Disease IgG Ab (IFA) Negative (NEGATIVE) 07/19/17 17:00 Lyme Disease IgM Ab Negative (NEGATIVE) 07/19/17 17:00 HIV 1&2 Antibody Screen Negative (NEGATIVE) 07/18/17 15:30 Blood Type O POSITIVE 07/15/17 17:21 Antibody Screen Negative 07/15/17 17:21 BBK History Checked No verified bt 07/15/17 17:21 - Hospital Course Hospital Course: 36 year old female admitted with dysarthria, currently being treated for mastoiditis with recurring episodes of facial numbness and dysarthria. The dysarthria and facial numbness has improved. ID and neurology were following. The patient was treated with 7 days of IV Rocephin. She will continue with PO antibiotics. CT head : mastoiditis Brain MRI: No evidence of acute intracranial hemorrhage or infarct. Underpneumatized sclerotic left mastoid air complex with partial opacification of residual left-sided mastoid air cells. Patient to have close follow up outpatient with neurology. She needs genetic confirmation of Que danlos, Echocardiogram done this admission was unremarkable. Will be discharged on Augmentin. - Date & Time of H&P Date of H&P: 07/16/17 Time of H&P: 07:57 Discharge Exam - Head Exam Head Exam: ATRAUMATIC, NORMAL INSPECTION, NORMOCEPHALIC - Respiratory Exam Respiratory Exam: Clear to PA & Lateral, NORMAL BREATHING PATTERN - Cardiovascular Exam Cardiovascular Exam: REGULAR RHYTHM, +S1, +S2 - GI/Abdominal Exam GI & Abdominal Exam: Normal Bowel Sounds, Soft. absent: Diminished Bowel Sounds , Tenderness - Neurological Exam Neurological exam: Alert, CN II-XII Intact - Psychiatric Exam Psychiatric exam: Normal Affect, Normal Mood - Skin Skin Exam: Dry, Intact, Normal Color, Warm Discharge Plan - Discharge Medications Prescriptions: Amoxicillin/Clavulanate [Augmentin 875 MG-125 MG] 1 tab PO BID #20 tab - Follow Up Plan Condition: STABLE Disposition: HOME/ ROUTINE Instructions: Mastoiditis (DC) Additional Instructions: Complete all antibiotics. F/u with PMD and Dr. Altman in 1 week Referrals: Caesar Shultz MD [Staff Provider] - Fredi Cuellar MD [Staff Provider] - Art Altman MD [Staff Provider] -
--- NOTE | 2017-07-23 12:19 | CP.PCM.PN ---
Subjective - Date & Time of Evaluation Date of Evaluation: 07/23/17 Time of Evaluation: 08:00 - Subjective Subjective: improving awake alert afebrile Objective - Vital Signs/Intake and Output Vital Signs (last 24 hours): Temp Pulse Resp BP Pulse Ox 98.0 F 77 20 104/72 99 07/23/17 07:21 07/23/17 07:21 07/23/17 07:21 07/23/17 07:21 07/23/17 07:21 Intake and Output: 07/23/17 07/23/17 06:59 18:59 Intake Total 50 Balance 50 - Medications Medications: Current Medications Acetaminophen (Tylenol 325mg Tab) 650 mg PO Q6 PRN PRN Reason: Headache Last Admin: 07/22/17 14:25 Dose: 650 mg Albuterol (Ventolin Hfa 90 Mcg/Actuation (8 G)) 2 puff IH Q4H PRN PRN Reason: Shortness of Breath Last Admin: 07/21/17 12:10 Dose: 2 puff Enoxaparin Sodium (Lovenox) 30 mg SC DAILY JAKOB PRN Reason: Protocol Last Admin: 07/23/17 08:37 Dose: 30 mg Ceftriaxone Sodium (Rocephin Iv 1 Gm Duplex) 50 mls @ 50 mls/hr IVPB Q12H JAKOB PRN Reason: Protocol Last Admin: 07/23/17 11:19 Dose: 50 mls/hr Loperamide HCl (Imodium) 4 mg PO QID [facility] Last Admin: 07/23/17 08:36 Dose: Not Given Propranolol HCl (Inderal) 10 mg PO HS [facility] Last Admin: 07/22/17 22:17 Dose: 10 mg Thiamine HCl (Vitamin B1 Tab) 100 mg PO DAILY [facility] Last Admin: 07/23/17 08:37 Dose: 100 mg - Labs Labs: 07/23/17 06:20 07/23/17 06:20 PT 11.2 Seconds (9.8-13.1) 07/15/17 17:21 INR 1.0 (0.9-1.2) 07/15/17 17:21 APTT 33.0 Seconds (25.6-37.1) 07/15/17 17:21 - Constitutional Appears: Non-toxic, Chronically Ill - Head Exam Head Exam: NORMOCEPHALIC - Eye Exam Eye Exam: PERRL - ENT Exam ENT Exam: Mucous Membranes Dry - Neck Exam Neck Exam: absent: Lymphadenopathy - Respiratory Exam Respiratory Exam: Decreased Breath Sounds - Cardiovascular Exam Cardiovascular Exam: REGULAR RHYTHM - GI/Abdominal Exam GI & Abdominal Exam: Distended - Rectal Exam Rectal Exam: Deferred - Exam Exam: NORMAL INSPECTION - Extremities Exam Extremities Exam: absent: Pedal Edema - Back Exam Back Exam: absent: CVA tenderness (L), CVA tenderness (R) - Neurological Exam Neurological Exam: Alert, Awake, CN II-XII Intact Neuro motor strength exam: Left Upper Extremity: 5, Right Upper Extremity: 5, Left Lower Extremity: 5, Right Lower Extremity: 5 - Psychiatric Exam Psychiatric exam: Normal Mood - Skin Skin Exam: Dry Assessment and Plan (1) Dysarthria Status: Acute (2) Que-Danlos disease Status: Chronic (3) Mastoiditis Status: Acute (4) Migraine headache Status: Acute
--- NOTE | 2017-07-24 00:12 | CP.PCM.PN ---
Subjective - Date & Time of Evaluation Date of Evaluation: 07/23/17 Time of Evaluation: 10:00 - Subjective Subjective: After completing 14 doses of IV Rocephin, 1 gm Q 12 hrs X 7 full days, she was discharged on Po Augmentin 875mg to complete her treatment for Mastoiditis. She has periodically brief left facial pain and brief left facial droopiness. She will be followed as an outpatient. Objective - Vital Signs/Intake and Output Vital Signs (last 24 hours): Temp Pulse Resp BP Pulse Ox 98.0 F 77 20 104/72 99 07/23/17 07:21 07/23/17 07:21 07/23/17 07:21 07/23/17 07:21 07/23/17 07:21 - Labs Labs: 07/23/17 06:20 07/23/17 06:20 PT 11.2 Seconds (9.8-13.1) 07/15/17 17:21 INR 1.0 (0.9-1.2) 07/15/17 17:21 APTT 33.0 Seconds (25.6-37.1) 07/15/17 17:21 Assessment and Plan (1) Que-Danlos disease Status: Chronic (2) Dizziness Assessment & Plan: Not occurring any more. Status: Acute (3) Epistaxis Status: Chronic (4) Migraine headache Status: Chronic (5) Mastoiditis Status: Acute
== END 2017-07-23 12:37 | disposition home or self-care (01) | DRG 565 ==
LOC: H.ER 16:54 → H.ERHOLD 19:35 → UNDOADMOB 19:38 → H.ERHOLD 19:38 → H.TEL 21:48 → OBSVTOIN 07-16 20:55 → H.MEDSURG1 07-22 06:31
PROVIDERS: ADMIT Internal Medicine; ATTEND Internal Medicine
DX: Q79.6 Ehlers-Danlos syndromes (principal); H70.002 Acute mastoiditis without complications, left ear; G43.909 Migraine, unspecified, not intractable, without status migrainosus; J34.2 Deviated nasal septum; R04.0 Epistaxis; R47.1 Dysarthria and anarthria; F41.8 Other specified anxiety disorders; Z88.6 Allergy status to analgesic agent; Z88.1 Allergy status to other antibiotic agents